=== PATIENT | female | born 1950 | race Caucasian/White ===

== ENCOUNTER 2022-06-27 12:57 | Emergency (ER) | payer MEDICARE, BC, SELFPAY ==
[2022-06-27] VITALS (21 sets, daily range): BP systolic 142–204; BP diastolic 84–116; PULSE 96–123; RESP 18; TEMP 36.7; O2SAT 94–98; BMI 23.8
--- NOTE | 2022-06-27 13:18 | CRLHL7_ITS ---
For Patients: As a result of the Century Cures Act, medical imaging exams and procedure reports are released immediately into your electronic medical record. You may view this report before your referring provider. If you have questions, please contact your health care provider. INDICATION: CHEST PAIN, HIGH BP TECHNIQUE: Chest 2 views. COMPARISON: August 16, 2020. FINDINGS: Cardiovascular and mediastinum: Heart size and vasculature are normal in caliber and appearance. Lungs and pleural spaces: Lungs are clear. No sign of infiltrate. No sign of pleural effusion. No pneumothorax. Suspect calcified granulomas at the bilateral lung bases and spleen. Bones and soft tissues: No significant findings. IMPRESSION: No acute or significant findings. Dictated by Albert Bose MD @ 06/27/2022 3:04:16 PM (Electronically Signed)
[2022-06-27] MEDS: IPRAT-ALBUT 0.5-2.5 MG/3 ML NEB 1 NEB IH (13:52)
[2022-06-27 13:55] LABS: Basophils Absolute Auto 0.02 K/uL (0.00-0.30); Basophils Percent Auto 0.3 % (0.0-3.0); Eosinophils Absolute Auto 0.03 K/uL (0.00-0.50); Eosinophils Percent Auto 0.4 % (0.0-7.0); Hematocrit 44.7 % (33.0-51.0); Hemoglobin* 14.7 gm/dL (12.0-16.0); Immature Granulocytes Abs Auto 0.01 K/uL (0.00-0.30); Immature Granulocytes Pct Auto 0.1 %; Lymphocytes Percent Auto 16.6 % (20-44); Mean Corpuscular HGB Conc 33 gm/dL (32-36); Mean Corpuscular Hemoglobin 33 pg (26-34); Mean Corpuscular Volume 101 fL (80-100); Neutrophils Percent Auto 74.6 % (42.0-72.0); Platelet Count* 290 K/uL (140-440); Red Blood Count 4.43 m/uL (4.00-5.20)
[2022-06-27 14:02] LABS: Chloride* 104 mmol/L (96-114); Potassium* 4.2 mmol/L (3.6-5.1); Sodium* 137 mmol/L (135-149)
[2022-06-27 14:03] LABS: Partial Thromboplastin Time* 27 Seconds (23-33)
[2022-06-27 14:05] LABS: Blood Urea Nitrogen* 16 mg/dL (7-30); Carbon Dioxide* 29 mmol/L (20-32); Creatinine* 0.7 mg/dL (0.5-1.5); Est. Creatinine Clearance* 38.37; Estimated Glomerular Filt Rate 92 ml/min
[2022-06-27 14:06] LABS: Calcium* 8.8 mg/dL (8.4-10.6); Glucose* 164 mg/dL (60-115)
[2022-06-27 14:14] LABS: Slide Review Reflex No
--- NOTE | 2022-06-27 14:17 | ED_ITS ---
HPI - Chest Pain General Date Seen: 06/27/22 Chief Complaint: Chest Pain Stated Complaint: Chest pain, high BP Time Seen by Provider: 06/27/22 13:09 Source: patient Mode of arrival: ambulatory Limitations: no limitations History of Present Illness HPI narrative: Patient is a 72-year-old female who presents ambulatory to the emergency room for chest pain that occurred while she was out with her friends eating at lunch. She describes pain underneath her left breast, took her breath away, and if she said she was not sitting she would have fallen over. No radiation to her back, shoulder, she does have a history of COPD she tells me but does not think this is a COPD exacerbation. Denies having any food caught in her throat during this occurrence or eating axillae when she was dot the pain. No past history of any cardiac issues, denies any leg swelling, history of DVT or pulmonary emboli. MD complaint: chest pain Pertinent past history: asthma Onset (ago): minute(s) Prior episodes: No Onset: during rest and other (Associated with eating) Pain location: substernal and left chest Pain radiation: none Severity: severe Quality: tightness and sharp Exacerbating factors: nothing Treatment prior to arrival: none Risk Factors Coronary artery disease risk factors: none Thoracic aortic dissection risk factors: none Related Data On Oral Contraceptives: No Home Medications Medication Instructions Recorded Confirmed atenolol 50 mg tablet 50 mg PO DAILY 06/27/22 06/27/22 Allergies Allergy/AdvReac Type Severity Reaction Status Date / Time adhesive Allergy Verified 06/27/22 13:04 aspirin Allergy Verified 06/27/22 13:04 ketorolac [From Toradol] Allergy Verified 06/27/22 13:04 psyllium Allergy Verified 06/27/22 13:05 Review of Systems Status of ROS Reports: 10 or more systems reviewed and unremarkable except as noted in History and below Exam Narrative Exam Narrative: Patient is speaking normally, no problem with slurring words, oriented x3. Head eyes ears nose and throat exam show equal pupils, no scleral icterus, extraocular muscles are normal, no facial droop, speech is normal, trachea normal and midline. Thyroid normal midline palpable not enlarged. Chest shows symmetrical rise bilaterally, normal auscultation with no wheezes, no increased work of breathing, no overt bruising or lesions seen, no tenderness is noted on auscultation. No chest pain noted on palpation. Heart sounds normal with no S3- S4 no murmurs clicks or gallops. Abdomen shows no obvious masses or hepatosplenomegaly, no organomegaly, bowel sounds are normal in all quadrants. No tenderness is noted also in all quadrants. Upper and lower extremities show normal power, normal range of motion, pulses are normal, sensations normal, fine motor movements are normal, pelvis is stable to rocking. Cervical spine shows normal range of motion, and palpably not tender. Thoracic spine shows normal range of motion, and palpably not tender, lumbar spine shows no tenderness to palpation percussion and is otherwise normal range of motion. Skin shows no rashes, petechiae or eccymosis. Const Vital Signs, click to edit/add: Vital Signs - 24 hr 06/27/22 13:02 06/27/22 14:09 06/27/22 14:12 Temperature 98.0 F Pulse Rate 108 H 111 H Pulse Rate [Right Pulse Oximeter] 123 H Respiratory Rate 18 Blood Pressure 142/116 H Blood Pressure [Right Upper Arm] 204/104 H Pulse Oximetry 96 95 97 Oxygen Delivery Method Room Air Documenting provider has reviewed patient's vital signs: yes Common normals: no apparent distress Course Course Hospital Course: Reviewed with the patient the CT scan did not show anything acute, no PE, troponins x2 showed delta 0.01, normal EKGs, her pain improved improved and basically went away while she was here. Because of her pain remains elusive but I suspect is more musculoskeletal, with the absence of any significant changes. Reassured by the other findings such as CT, I think at this point Tylenol at home rest follow-up with primary care and considering further workup, within the next few days return here if signs symptoms of worsening she was very comfortable with this. Vital Signs Vital signs: Initial Vital Signs Temperature 98.0 F 06/27/22 13:02 Temperature Source Temporal Artery Scan 06/27/22 13:02 Pulse Rate 123 H 06/27/22 13:02 Respiratory Rate 18 06/27/22 13:02 Blood Pressure 204/104 H 06/27/22 13:02 Blood Pressure Mean 137 06/27/22 13:02 Blood Pressure Position Sitting 06/27/22 13:02 Pulse Oximetry 96 06/27/22 13:02 Oxygen Delivery Method 06/27/22 13:02 Vital Signs Temperature 98.0 F 06/27/22 13:02 Pulse Rate 123 H 06/27/22 13:02 Respiratory Rate 18 06/27/22 13:02 Blood Pressure 204/104 H 06/27/22 13:02 Pulse Oximetry 96 06/27/22 13:02 Oxygen Delivery Method 06/27/22 13:02 Temperature 98.0 F 06/27/22 13:02 Pulse Rate 111 H 06/27/22 14:12 Respiratory Rate 18 06/27/22 13:02 Blood Pressure 142/116 H 06/27/22 14:12 Pulse Oximetry 97 06/27/22 14:12 Oxygen Delivery Method 06/27/22 13:02 MDM - Chest Pain MDM Narrative Medical decision making narrative: During the evaluation of this patient I considered multiple differential diagnosis is. The life-threatening differential diagnosis include coronary disease/[place], pulmonary embolism, pneumothorax, pneumonia, and aortic dissection. Other differential diagnosis included but were not limited to pericarditis, myocarditis, chest wall pain, GERD, esophageal rupture, rib fracture contusion, pleurisy, as well as other etiologies. Medical Records Data Attestation: I reviewed the patient's medical records. Lab Data Attestation: I reviewed the patient's lab results. Labs: Lab Results 06/27/22 06/27/22 06/27/22 Range/Units 13:24 13:30 13:30 WBC 7.90 (4.50-11.00) K/uL RBC 4.43 (4.00-5.20) m/uL Hgb 14.7 (12.0-16.0) gm/dL Hct 44.7 (33.0-51.0) % MCV 101 H (80-100) fL MCH 33 (26-34) pg MCHC 33 (32-36) gm/dL RDW Coeff of [place] 12.0 (11.5-15.5) % Plt Count 290 (140-440) K/uL Neut % (Auto) 74.6 H (42.0-72.0) % Lymph % (Auto) 16.6 L (20-44) % [place] % (Auto) 8.0 (0.0-11.0) % Eos % (Auto) 0.4 (0.0-7.0) % Baso % (Auto) 0.3 (0.0-3.0) % Neut # (Auto) 5.90 (1.7-7.0) K/uL Lymph # (Auto) 1.30 (0.90-2.90) K/uL [place] # (Auto) 0.60 (0.00-0.90) K/UL Eos # (Auto) 0.03 (0.00-0.50) K/uL Baso # (Auto) 0.02 (0.00-0.30) K/uL APTT (23-33) Seconds Sodium 137 (135-149) mmol/L Potassium 4.2 (3.6-5.1) mmol/L Chloride 104 (96-114) mmol/L Carbon Dioxide 29 (20-32) mmol/L BUN 16 (7-30) mg/dL Creatinine 0.7 (0.5-1.5) mg/dL Estimated Creat Clear 38.37 Estimated GFR 92 ml/min Glucose 164 H (60-115) mg/dL Calcium 8.8 (8.4-10.6) mg/dL NT-Pro-B Natriuret Pep pg/mL SARS-CoV-2 (PCR) (Negative) Influenza Type A (PCR) (Negative) Influenza Type B (PCR) (Negative) RSV (PCR) (Negative) POC Troponin I 0.00 L (0.01-0.04) ng/ml 06/27/22 06/27/22 06/27/22 Range/Units 13:30 13:30 13:30 WBC (4.50-11.00) K/uL RBC (4.00-5.20) m/uL Hgb (12.0-16.0) gm/dL Hct (33.0-51.0) % MCV (80-100) fL MCH (26-34) pg MCHC (32-36) gm/dL RDW Coeff of [place] (11.5-15.5) % Plt Count (140-440) K/uL Neut % (Auto) (42.0-72.0) % Lymph % (Auto) (20-44) % [place] % (Auto) (0.0-11.0) % Eos % (Auto) (0.0-7.0) % Baso % (Auto) (0.0-3.0) % Neut # (Auto) (1.7-7.0) K/uL Lymph # (Auto) (0.90-2.90) K/uL [place] # (Auto) (0.00-0.90) K/UL Eos # (Auto) (0.00-0.50) K/uL Baso # (Auto) (0.00-0.30) K/uL APTT 27 (23-33) Seconds Sodium (135-149) mmol/L Potassium (3.6-5.1) mmol/L Chloride (96-114) mmol/L Carbon Dioxide (20-32) mmol/L BUN (7-30) mg/dL Creatinine (0.5-1.5) mg/dL Estimated Creat Clear Estimated GFR ml/min Glucose (60-115) mg/dL Calcium (8.4-10.6) mg/dL NT-Pro-B Natriuret Pep 490 pg/mL SARS-CoV-2 (PCR) Negative SARS-CoV-2 (Negative) Influenza Type A (PCR) Negative PCR FLU A (Negative) Influenza Type B (PCR) Negative PCR FLU B (Negative) RSV (PCR) Negative PCR RSV (Negative) POC Troponin I (0.01-0.04) ng/ml 06/27/22 Range/Units 15:33 WBC (4.50-11.00) K/uL RBC (4.00-5.20) m/uL Hgb (12.0-16.0) gm/dL Hct (33.0-51.0) % MCV (80-100) fL MCH (26-34) pg MCHC (32-36) gm/dL RDW Coeff of [place] (11.5-15.5) % Plt Count (140-440) K/uL Neut % (Auto) (42.0-72.0) % Lymph % (Auto) (20-44) % [place] % (Auto) (0.0-11.0) % Eos % (Auto) (0.0-7.0) % Baso % (Auto) (0.0-3.0) % Neut # (Auto) (1.7-7.0) K/uL Lymph # (Auto) (0.90-2.90) K/uL [place] # (Auto) (0.00-0.90) K/UL Eos # (Auto) (0.00-0.50) K/uL Baso # (Auto) (0.00-0.30) K/uL APTT (23-33) Seconds Sodium (135-149) mmol/L Potassium (3.6-5.1) mmol/L Chloride (96-114) mmol/L Carbon Dioxide (20-32) mmol/L BUN (7-30) mg/dL Creatinine (0.5-1.5) mg/dL Estimated Creat Clear Estimated GFR ml/min Glucose (60-115) mg/dL Calcium (8.4-10.6) mg/dL NT-Pro-B Natriuret Pep pg/mL SARS-CoV-2 (PCR) (Negative) Influenza Type A (PCR) (Negative) Influenza Type B (PCR) (Negative) RSV (PCR) (Negative) POC Troponin I 0.01 (0.01-0.04) ng/ml Imaging Data CT scan - chest: Attestation: I have reviewed the pertinent imaging results. My impression: Do not see any abnormality on CT scan. Radiologist's impression: Patient: BRIDGET BAHENA Facility:?[facility] Patient ID:?[id number] Site Patient ID:?[id number]. Site :?[id number] Study:?CT Chest Angio PE PROTOCOL-06/27/2022 3:34:02 PM Ordering Physician:Caty Miller Final Report: INDICATION: Chest pain TECHNIQUE: CT chest PE was acquired with 95 cc Isovue 370 IV contrast. COMPARISON: None FINDINGS: Pulmonary Arteries: No CT evidence of pulmonary thromboembolic disease. No pul monary hypertension or right ventricular strain. Heart and Mediastinum: The visualized portions of the thyroid are normal. No axillary or supraclavicular lymphadenopathy. No mediastinal, hilar or ret rocrural lymphadenopathy. Normal heart size. Normal caliber aorta. Atherosclerotic calcifications of the aorta and its branches. Coronary artery calcifications. Mitral annular calcifications. Lungs and Airways: Upper lobe predominant centrilobular and paraseptal emphysema. Scattered indeterminate pulmonary nodules measuring up to 7 millimeters in the left lower lobe, axial image 140. Calcified granulomas. No mass or consolidation. No endoluminal lesion. Pleura: The pleural spaces are normal. Abdomen: Calcified hepatic and splenic granulomas. Small bilateral fat containing Bochdalek hernias. Simple attenuation segment 4 B cystic focus, statistically a simple cyst versus biliary hamartoma. Bones and soft tissues: The skeletal structures and soft tissues of the chest wall are unremarkable. IMPRESSION: 1. No CT evidence pulmonary thromboembolic disease. 2. No intrathoracic mass or consolidation. 3. Scattered indeterminate pulmonary nodules measuring up to 7 millimeters. Recommend unenhanced chest CT in approximately 6 months to document stability and to assess for underlying malignant potential. Please note that all CT scans at this facility use dose modulation, iterative reconstruction, and/or weight-based dosing when appropriate to reduce radiation dose to as low as reasonably achievable. Dictated by Ramsey Brunner MD @ 06/27/2022 4:36:53 PM (Electronic Signature) ECG Data Attestation: I personally reviewed and interpreted this ECG as follows: ECG interpretation date: 06/27/22 Interpretation: EKG shows sinus tachycardia with occasional PVCs no acute ST wave changes. Normal QRS QT and CA intervals assessment normal EKG with sinus tachycardia Follow-up EKG shows resolution of the sinus tachycardia, no acute ST wave changes. Assessment normal EKG Discharge Plan Discharge Clinical Impression: Chest pain Patient Disposition: Home, Self-Care Condition: Improved Instructions: Chest Pain (DC) Additional Instructions: home,rest and follow up with Primary care for recheck. Suggest tylenol, return if worsening such as vomiting, shortness of breath and abd pain Prescriptions: No Action atenolol 50 mg tablet 50 mg PO DAILY Follow Up/Referrals: Jacki Underwood DO [Primary Care Provider] - Stand Alone Forms: [employer] Info Instructions
[2022-06-27 14:19] LABS: PCR FLU A Negative PCR FLU A (Negative); PCR FLU B Negative PCR FLU B (Negative); PCR RSV Negative PCR RSV (Negative)
[2022-06-27 14:22] LABS: NT Pro B Type NatriureticPept* 490 pg/mL
[2022-06-27 14:36] LABS: SARS PCR* Negative SARS-CoV-2 (Negative)
--- NOTE | 2022-06-27 14:59 | CRLHL7_ITS ---
For Patients: As a result of the Century Cures Act, medical imaging exams and procedure reports are released immediately into your electronic medical record. You may view this report before your referring provider. If you have questions, please contact your health care provider. INDICATION: Chest pain TECHNIQUE: CT chest PE was acquired with 95 cc Isovue 370 IV contrast. COMPARISON: None FINDINGS: Pulmonary Arteries: No CT evidence of pulmonary thromboembolic disease. No pulmonary hypertension or right ventricular strain. Heart and Mediastinum: The visualized portions of the thyroid are normal. No axillary or supraclavicular lymphadenopathy. No mediastinal, hilar or retrocrural lymphadenopathy. Normal heart size. Normal caliber aorta. Atherosclerotic calcifications of the aorta and its branches. Coronary artery calcifications. Mitral annular calcifications. Lungs and Airways: Upper lobe predominant centrilobular and paraseptal emphysema. Scattered indeterminate pulmonary nodules measuring up to 7 millimeters in the left lower lobe, axial image 140. Calcified granulomas. No mass or consolidation. No endoluminal lesion. Pleura: The pleural spaces are normal. Abdomen: Calcified hepatic and splenic granulomas. Small bilateral fat containing Bochdalek hernias. Simple attenuation segment 4 B cystic focus, statistically a simple cyst versus biliary hamartoma. Bones and soft tissues: The skeletal structures and soft tissues of the chest wall are unremarkable. IMPRESSION: 1. No CT evidence pulmonary thromboembolic disease. 2. No intrathoracic mass or consolidation. 3. Scattered indeterminate pulmonary nodules measuring up to 7 millimeters. Recommend unenhanced chest CT in approximately 6 months to document stability and to assess for underlying malignant potential. Please note that all CT scans at this facility use dose modulation, iterative reconstruction, and/or weight-based dosing when appropriate to reduce radiation dose to as low as reasonably achievable. Dictated by Ramsey Brunner MD @ 06/27/2022 4:36:53 PM (Electronically Signed)
[2022-06-27] MEDS: 0.9 % SODIUM CHLORIDE 500 ML 500 ML IV (15:35)
[2022-06-27 16:18] LABS: Troponin, Point-of-Care* 0.01 ng/ml (0.01-0.04)
[2022-06-27 18:12] LABS: D Dimer Quantitative* < 0.27 ug/ml (0.00-0.50)
== END 2022-06-27 17:17 | disposition home or self-care (01) ==
PROVIDERS: Emergency Provider Family Medicine; PCP Family Medicine
DX: R07.9 Chest pain, unspecified (principal)
CPT/HCPCS: 36415; 71046; 71260; 80048; 83880; 84484; 85025; 85379; 85730; 87502; 87634; 87635; 93005; 94640; 99284; 99285; J7120; Q9967

== ENCOUNTER 2023-11-22 16:53 | Outpatient (CLI) | payer MEDICARE, BC, SELFPAY ==
--- OUTSIDE RECORDS SUMMARY | 2023-11-24 14:11 | XMS_ITS | Clinical Summary ---
Author Organization [facility] Address [place], [place] [address] Care Team Providers Care Psychological Aide Name Role Phone Jun Ramachandran MD Unavailable [phone] Mohan Chaves MD Unavailable Bella Kumar DO Primary Care Provider [phone] Allergies Active Allergy Reactions Criticality Noted Date Comments Adhesive Angioedema 11/24/2013 Aspirin Hives,Shortness Of Breath 02/19/2007 Severe Vwtvvmeb-Rmdvasrzcr-A olymyxin Rash,Edema,Erythema 02/19/2007 The eye drops only Psyllium Hives,Edema 02/19/2007 Ketorolac Hives 01/18/2016 Medications Medication Sig Dispensed Refills Start Date End Date Status CALTRATE 600+D PLUS MINERALS 600 MG (1,500 MG)-400 UNIT CHEWABLE TABIndications:Disord er of bone and cartilage, unspecified 1 tab twice daily 0 02/19/2007 Active cholecalciferol (VITAMIN D) 1,000 unit capsule Take 1 capsule by mouth once daily. 0 03/07/2011 Active ascorbic acid, vitamin C, (VITAMIN C) 500 mg tablet Take 1 tablet by mouth once daily. 0 01/03/2017 Active acetaminophen (TYLENOL) 325 mg tablet Take 650 mg by mouth. 08/25/2016 Active chondroitin sulf A sodium, PF, (KLARITY, CHONDROITIN,) 0.25 % drop Place into the eye(s). 0 03/07/2019 Active medical supply, miscellaneous (GRADUATED COMPRESSION STOCKINGS)Indications :Pedal edema,Varicose veins of both lower extremities with pain For personal use. Length: calf Strength: 8-12mmHg 1 Packet 2 06/21/2020 Active NebulizerIndications: Moderate persistent asthma without complication Nebulizer, disposable neb kit x 4, reuseable neb kit x 1, mask x 1, filters x 1. Frequency of use: daily; Medication: Albuterol Length of need: 99 months 1 Each 12/12/2021 Active Blood Pressure Monitor KitIndications:HTN (hypertension) Frequency of testing: daily prn 1 Each 11/20/2022 Active albuterol HFA (ProAir HFA) 90 mcg/actuation inhalerIndications:Mo derate persistent asthma without complication Inhale 1-2 Puffs by mouth every 6 hours if needed for Wheezing. 1 Each 3 12/21/2022 Active albuterol (PROVENTIL) 0.083 % neb solutionIndications:M oderate persistent asthma without complication Inhale 3 mL (2.5 mg) via a nebulizer every 4 hours if needed for Wheezing. 180 mL 02/07/2023 Active diltiazem LA (CARDIZEM LA) 240 mg extended release 24 hr tabletIndications:Sin us tachycardia Take 1 Tablet (240 mg) by mouth once daily. 90 Tablet 3 03/21/2023 Active umeclidinium-vilanter oL (Anoro Ellipta) 62.5-25 mcg/actuation inhalerIndications:Ch ronic obstructive pulmonary disease, unspecified COPD type (HC) Inhale 1 Puff by mouth once daily. Discard inhaler 6 weeks after opening or when the counter reads '0' (after all blisters have been used), whichever comes first. 60 Each 11 05/10/2023 Active albuterol-ipratropium (DUONEB) (2.5-0.5 mg) in 3 mL NEBULIZATION solutionIndications:C OPD mixed type (HC) USE 3 ML VIA NEBULIZER THREE TIMES DAILY 180 mL 1 06/08/2023 Active alendronate (FOSAMAX) 70 mg tabletIndications:Ost eopenia with high risk of fracture Take 1 Tablet (70 mg) by mouth once a week in the morning. Take on empty stomach with full glass of water. Do not lie down for 1 hr. 13 Tablet 2 07/03/2023 Active loratadine (Claritin) 10 mg tablet Take 10 mg by mouth once daily. Active furosemide (LASIX) 20 mg tabletIndications:Ped al edema,Tachycardia,HTN (hypertension) Take 1 Tablet (20 mg) by mouth once daily in the morning. 90 Tablet 08/29/2023 Active Active Problems Problem Noted Date Diagnosed Date Paroxysmal SVT (supraventricular tachycardia) TMJ (temporomandibular joint disorder) 3 Moderate persistent asthma without complication 10/31/2022 Anal fissure 09/28/2010 Personal history of colonic polyps 09/23/2010 Overview: Colonoscopy 09/2010 hyperplastic polyp repeat in 5 years Colonoscopy 01/2016 adenoma repeat in 5 years with propofol Colonoscopy 04/2021 normal, repeat in 7 years with propofol Other diseases of lung, not elsewhere classified 02/11/2010 Overview: Mild central lobular emphysema Multiple non calcified bilateral pulmonary nodules, left lower lob calcified granulomata Left hilar calcified lymph nodes Unspecified asthma(493.90) 02/19/2007 Personal history of tobacco use, presenting hazards to health 02/19/2007 Disorder of bone and cartilage, unspecified 09/2006 Encounters Date Type Department Care Team Description 11/05/2023 10:30 AM CDT Ancillary Procedure [facility] [address] [place] [address] 11/05/2023 9:40 AM CDT Orders Only [facility] [address] [facility] [address] [place] [address] Lab 11/05/2023 Travel 10/31/2023 10:30 AM CDT Orders Only [facility] [address] [facility] [place] [address] Lab, [facility] 10/31/2023 Travel 10/30/2023 Telephone [facility] [address] [place] [address] Bella Kumar DO Lab (Orders Needed) 10/30/2023 Orders Only [facility] [place] [address] [place] [id number] Jun Mantilla MD <No scans attached> 10/25/2023 3:00 PM CDT Office Visit [facility] - [address] [place] [address] [facility] 10/25/2023 2:30 PM CDT Office Visit [facility] - [place] [address] [place] [address] Jun Mantilla MD CV Valve New (VALVE NEW:, NO TESTING PRIOR) 10/25/2023 Travel 09/25/2023 Telephone [facility] - [place] [address] [place] [phone] Cardiology, Anw Cardiology Appointment 09/24/2023 10:00 AM CDT Office Visit [facility] - [place] [address] [place] [address] Ramsey Mobley MD CV General Cardiology New (Initial; Echo done 09/18 - Aortic Valve Stenosis) 09/24/2023 Travel 09/19/2023 11:00 AM CDT Ancillary Procedure [facility] at [facility] [address] [place] [address] 09/19/2023 Telephone [facility] [address] [place] [address] Bella Kumar DO Results (echo) 09/19/2023 Travel 09/14/2023 Telephone [facility] [address] [place] [address] Shalini Desouza MD Follow Up (Returning Call ) 09/14/2023 Telephone [facility] [address] [place] [address] Shalini Desouza MD Results 09/12/2023 11:05 AM CDT Office Visit [facility] [address] [place] [address] Shalini Desouza MD Hypertension Care Management; Follow Up (heart monitor) 09/12/2023 Travel 08/28/2023 Telephone [facility] [address] [facility] Bella Kumar DO Follow Up (BP, Pulse, and swelling) from Last 3 Months Immunizations Name Administration Dates Next Due COVID-19 vaccine (Moderna 100mcg/0.5mL) PF, MDV 06/09/2020,05/12/2020 COVID-19 vaccine (Pfizer-Bio NTech 30mcg/0.3mL) 12YO+ BIVALENT PF, MDV 10/27/2022 Hepatitis A (Adult) 02/19/2007,08/18/2006 Hepatitis B (Adult) 08/03/2002,02/28/2002,2001 Influenza A (H1N1), Inactivated 02/25/2009 Influenza RIV4 (Age 18+ Year s) PRESERV FREE 01/16/2020 Influenza, High-dose Inactivated 02/18/2019 Influenza, High-dose Quadriv alent Inactivated 02/06/2023,02/06/2022,02/07/2021 Influenza, IIV3 (Age 6-35 mos) 03/07/2011 Influenza, IIV3 (Age >=3 years) 03/19/20 12,03/07/2011,02/11/2010,02/19,01/26/2006,03/21/2003 Influenza, IIV4 (=>6mos) MDV 01/23/2017,03/09/20 15,02/24/2014 Pneumococcal Conj 20-valent (Prevnar 20) 09/03/2021 Pneumococcal Poly,23-Valent (Pneumovax) 06/07/2015,02/11/2010,05/23/2002 Pneumococcal conj 13-Valent (Prevnar 13) 01/25/2018 RSV, Recombinant ADJ Reconst ituted (Arexvy 120MCG/0.5mL) 03/05/2023 Td (Age >=7 Years) 03/05/2020,08/29/2002 Tdap 07/19/2009 Zoster (Shingrix-RZV, recombinant) 03/30/2020, Zoster (Zostavax-ZVL, live) 03/07/2011 Family History Medical History Relation Name Comments Diabetes Brother 1 Javed Heart Disease Brother 1 Javed aortice valve replacement at age 52 Leukemia Brother 1 Javed Alcohol/Drug Brother 2 alcohol Lymphoma Brother 3 Cancer Brother 4 prostate Myelodysplastic syndrome Brother 5 German ane tania Cancer Father pancreatic, met s to the gall bladder Heart Disease Maternal Aunt aortic valve replacement Thyroid cancer Mother Uterine cancer Mother Heart Disease Paternal Uncle two uncles h ad NE at ages33, 40 Alcohol/Drug Sister Annabelle alcohol Cancer-breast Sister Annabelle Polycythemia Sister Annabelle Cancer-ovarian No Family History Relation Name Status Comments Brother 1 Javed Brother 2 Brother 3 Brother 4 Brother 5 German Father Maternal Aunt Mother May, Other spouse, 1994, p ancreatic cancer Paternal Uncle Sister Annabelle Social History Tobacco Use Types Packs/Day Years Used Date Smoking Tobacco: Every Day Cigarettes 0.3 51.6 Started: 1972 Smokeless Tobacco: Never Tobacco Cessation:Ready to Q uit: Not Asked; Counseling Given: Not Answered Comments:Couple CIGARETTES PER DAY Alcohol Use Standard Drinks/Week Comments Yes 0 (1 standard drink = 0.6 oz pur e alcohol) ocassionally PHQ-2 Answer Date Recorded PHQ-2 TOTAL SCORE 0 10/27/2022 Social Connections Answer Date Recorded Frequency of Communication with Friends and Fami ly 0 11/20/2022 Financial Resource Strain Answer Date R ecorded Difficulty of Paying Living Expenses 3 11/20/2022 Difficulty of Paying Living Expenses Not on file 11/20/2022 Food Insecurity Answer Date Recorded Worried About Running Out of Food in the Last Ye ar 1 11/20/2022 Transportation Needs Answer Date Record ed Lack of Transportation (Medical) 1 11/20/2022 Housing Stability Answer Date Recorded Unable to Pay for Housing in the Last Year 1 11/20/2022 Sex and Gender Information Value Date Recorded Sex Assigned at Not on file Gender Identity Not on file Sexual Orientation Not on file Obstetrics History Para Term AB IAB SAB Ectopic Multiple Livin g Live Births 2 2 Date Outcome GA Total Labor Labor/2nd/3rd Weight Sex Type Anes PTL She A1 A5 Name Clin Last Filed Vital Signs Vital Sign Reading Time Taken Comments Blood Pressure 120/66 10/25/2023 2:17 PM CDT Pulse 106 10/25/2023 2:17 PM CDT Temperature 36.8 ??C (98.2 ??F) 02/07/2023 1 0:47 AM CDT Respiratory Rate 16 05/10/2023 1:11 PM [employer]EL[employer] Oxygen Saturation 96% 10/25/2023 2:17 PM CDT Inhaled Oxygen Concentration - - Weight 53.4 kg (117 lb 12.8 oz) 10/25/2023 2:17 PM CDT Height 153 cm (5' 0.25) 10/25/2023 2:17 PM CDT Body Mass Index 22.82 10/25/2023 2:17 PM CDT Plan of Treatment Health Maintenance Due Date Last Done Comments COVID-19 vaccine series ( season) 2023 04/18/2023, 10/27/2022, 03/21/2022, Additional history exists Depression screening for age 12+ 10/28/2023 10/27/2022, 10/26/2021, 06/21/2020, Additional history exists Medicare Wellness for age 65+ 10/28/2023, 10/26/2021, 06/21/2020, Additional history exists Influenza for age 65+ 12/16/2023 02/06/2023 , 02/06/2022, 02/07/2021, Additional history exists Mammogram for age 45-75 01/31/2024 01/31/20 23, 01/25/2022, 01/24/2021, Additional history exists BMI (ht and wt on same day) for age 18+ 10/24/2024 10/25/2023, 09/24/2023, 05/10/2023, Additional history exists Lipids for age 45-75 10/28/2027 10/27/2022, 10/26/2021, 06/21/2020, Additional history exists Colonoscopy through age 75 05/09/202805/09, 05/09/2021, 01/18/2016, Additional history exists Tetanus booster 03/05/2030 03/05/2020, 04/0 08/2009, 08/29/2002 Tdap Completed 07/19/2009 Hepatitis C screening for ag e 18-79 Completed 04/16/2013 (Completed outsid e of Erika) Zoster (shingles) series for age 50+ Completed 03/30/2020, 01/16/2020, 03/07/2011 DEXA/DXA scan for age 65+ Completed 2021, 03/10/2019, 04/30/2012 Pneumococcal series for age 65+ Completed 09/03/2021, 01/25/2018, 06/07/2015, Additional history exists Procedures Procedure Name Priority Date/Time Associated Diagnosis Comments CTA CHEST ABD PELVIS TAVR - DUAL READ Routine 11/05/2023 10:14 AM CDT Aortic valve stenosis, etiology of cardiac valve disease unspecified CREATININE,ISTAT Routine 11/05/2023 9:42 AM CDT Preprocedural examination HEMATOCRIT Routine 10/31/2023 10:17 AM CDT Preprocedural examination EKG 12 LEAD Routine 10/25/2023 1:24 PM CDT Aortic valve stenosis, etiology of cardiac valve disease unspecified ECHO TTE COMPLETE WO CONTRAST Routine 09/19/2023 11:20 AM CDT Pedal edema Tachycardia EXTENDED HOLTER Routine 09/14/2023 Pedal edema Tachycardia BASIC METABOLIC PANEL Routine 09/12/2023 11:39 AM CDT Pedal edema HTN (hypertension) Medication management XR MAMMO KAIA BILAT SCREEN Routine 01/30/2023 11:05 AM CDT Visit for screening mammogram LIPID PANEL W REFLEX MEASURED LDL Routine 10/27/2022 12:21 PM CDT Lipid screening XR DXA BONE DENSITY 2 SITES AXIAL Routine 05/23/2021 11:09 AM [employer] DEVELOPER Osteopenia with high risk of fracture Post-menopausal COLONOSCOPY SCREENING Routine 05/09/2021 12:00 AM [employer] DEVELOPER Personal history of colonic polyps from Last 3 Months or Most Recently Relevant to Health Maintenance Results * CTA CHEST ABD PELVIS TAVR - DUAL READ (11/05/2023 10:14 AM CDT) Anatomical Region Laterality Modality CHEST, Abdomen, Pelvis Computed Tomography Impressions 11/06/2023 10:32 AM CDT 1. No acute nonvascular findings in the chest, abdomen, and pelvis. 2. Please refer to separately dictated report for evaluation of cardiovascular structures. Please note that all CT scans at this facility use dose modulation, iterative reconstruction, and/or weight-based dosing when appropriate to reduce radiation dose to as low as reasonably achievable. Dictated by Cosmo Saez MD @ 11/06/2023 10:01:50 AM (Electronic Signature) Narrative 11/06/2023 10:32 AM CDT Images from the original result were not included. STUDY: CTA CHEST, ABDOMEN, AND PELVIS TAVR Study date: 11/05/2023 Indication: 73 year-old female with aortic valvular stenosis referred for evaluation of aortic valve annulus, thoracic aorta anatomy, and arterial access anatomy to determine candidacy for transcatheter aortic valve replacement (TAVR) procedure. STUDY PARAMETERS: Scanner: Siemens Definition Force Contrast: 100 ml of Omnipaque 350 Scan protocol: Helical with dose modulation for heart image acquisition. ?? High-pitch for chest, abdomen, and pelvis image acquisition. Radiation dose length product: 592.92 for heart and chest, abdomen, pelvis imaging. Image quality: Excellent FINDINGS: Aortic valve: Trileaflet. Aortic valve calcium score 1494. Annulus: Angles: Access: Other findings: Coronary arteries: Proximal LAD is heavily calcified and cannot exclude severe stenosis. Proximal LCx and proximal RCA are patent. Left atrium: Normal contrast opacification Left ventricle septal ECV: 29% Pericardium: Trivial effusion. Thoracic aorta: Mild atheromatous disease in the descending thoracic aorta. Abdominal aorta: Normal size and morphology. Abdominal aorta branch arteries: Celiac artery Patent. Superior mesenteric artery Patent. Right renal artery Patent. Left renal artery Patent. Inferior mesenteric artery Patent. Noncardiac findings: Please see separate radiology report. FINAL IMPRESSIONS: Trileaflet aortic valve with a calcium score of 1494. Aortic annulus has a perimeter of 75 mm and an annular area of 434 mm??. Best fitting TAVR device options include the #23 S3 (5.8% under) or the #26 S3 (19.6% over) or the #29 Evolut. Note average SOV diameter of 29 mm. Transfemoral access is feasible on either side, though with marginal minimal luminal diameters. Recommend invasive coronary angiogram prior to aortic valve intervention. FOR PATIENT: Results are automatically released to your [employer]) account once available, in compliance with federal regulations. ?? This means that you may see your results before your provider has had a chance to review them. ??Please allow 2-3 business days for your provider to comment on the results. Jose Raul Boyd MD [facility] 11/05/2023 ?? For Patients: As a result of the Century Cures Act, medical imaging exams and procedure reports are released immediately into your electronic medical record. ??You may view this report before your referring provider. ?? If you have questions, please contact your health care provider. OVER-READ ??OVER-READ ??OVER-READ OVER-READ: DETAILED RADIOLOGY EXTRACARDIAC OVER-READ OF CARDIAC CT 11/05/2023 TECHNIQUE: ??Please see cardiology report for technical information. ??100 cc Omnipaque-350 intravenous contrast. ?? This exam is being performed in conjunction with the services provided by the [facility] ([facility]). CLINICAL HISTORY: ??Aortic valve stenosis. Cardiac over-read. FINDINGS: ?? Chest: Subcentimeter thyroid nodules measuring up to 7 mm in the left lobe. No significant lymphadenopathy in the chest. Moderate emphysematous changes most pronounced at the lung apices. Stable appearing pleural-based scarring in the lateral right lung apex. Stable bilateral pulmonary nodules measuring up to 8 mm in the left lower lobe. Benign bilateral calcified granulomas. Abdomen/Pelvis: Liver: Stable left hepatic lobe cyst. Scattered benign-appearing calcified granulomas. Non cirrhotic morphology. Gallbladder: Unremarkable. Spleen: Benign calcified granulomas. Spleen otherwise unremarkable Adrenal glands: Unremarkable. Kidneys: Enhance symmetrically without hydronephrosis. Pancreas: Unremarkable. Lymph nodes: No retroperitoneal, mesenteric, inguinal, or pelvic adenopathy by CT criteria. Bowel: No bowel obstruction. Colonic diverticulosis. Urinary bladder: Limited evaluation due to underdistention. No gross pathology. Reproductive structures: Unremarkable for patient`s age. No abdominal/pelvis ascites or free intraperitoneal air. Musculoskeletal: Status post right hip arthroplasty. Visualized osseous structures demonstrate diffuse degenerative changes. Jun Mantilla MD CT * (ABNORMAL) CREATININE,ISTAT (11/05/2023 9:42 AM CDT) CREATININE, POCT 0.80 0.57 - 1.11 mg/dL 11/05/2023 9:44 AM CDT [facility] Comment:Caution: Patients ta izaiah Hydroxyurea have falsely increased iStat Creatinine results. Verify creatinine results ordering a Creatinine (99257.2) eGFR 78(L) >90 mL/min/1.7 3m2 11/05/2023 9:44 AM CDT [facility] Comment:As of 2021, eG FR is calculated by the CKD-EPI creatinine equation without race adjustment. eGFR can be influenced by muscle mass, exercise, and diet. The reported eGFR is an estimation only and is only applicable if the renal function is stable. Blood BLOOD SPECIMEN / Unknown 11/05/2023 9:42 AM CDT 11/05/2023 9:44 AM CDT Jun Mantilla MD CHEMISTRY Performing Organization Address City/[facility]/ZIP Co de Phone Number [facility] [address] * HEMATOCRIT (10/31/2023 10:17 AM CDT) Pathologist [facility] HEMATOCRIT 44.8 33.0 - 51.0 % 10/31/2023 10:59 AM CDT [facility] Blood BLOOD SPECIMEN / Unknown Venipuncture / Unknown 10/31/2023 10:17 AM CDT 10/31/2023 10:17 AM CDT Narrative [facility] - 10/31/2023 10:59 AM CDT This procedure was originally ordered at [facility]. Jun Mantilla MD HEMATOLOGY [facility] [address] [place] [address] * EKG 12 LEAD (10/25/2023 1:24 PM CDT) Interpretation Normal sinus rhythm Normal ECG No previous ECGs available Ventricular Rate 99 BPM Atrial Rate 99 BPM P-R Interval 150 ms QRS Duration 70 ms QT 362 ms QTc 464 ms P [place] 75 degrees R [place] 72 degrees T [place] 70 degrees 10/25/2023 1:24 PM CDT 10/25/2023 4:32 PM CDT Jun Mantilla MD EKG ORD * ECHO TTE COMPLETE WO CONTRAST (09/19/2023 11:20 AM CDT) AORTIC VALVE MEAN PG 53 mmHg LVEDD 2.7 cm EJECTION FRACTION > 75% Anatomical Region Laterality Modality Ultrasound 09/19/2023 10:5 1 AM CDT Narrative 09/19/2023 12:11 PM CDT ECHOCARDIOGRAM BRIDGET MAGANA ? Accession#: ?? [id number] : ?1950 73 years Study Date: ?? 09/19/2023 10:51:18 AM Gender: F ?BP: ? 122/86 mmHg Height: 152.00 cm ?BSA: ?1.48 m? ? ? Weight: 53.00 kg ? Tech: ? MJW ? Referring MD: BELLA KUMAR Site: ? [facility] Reading Location: Mobile-OP Patient Location: Outpatient. Procedure: 2D, Color Doppler and Spectral Doppler. Indication for study: Pedal edema Tachycardia Cardiac Rhythm: Regular.Study quality: Imaging limitations: This study was subject to imaging limitations due to a prominent lung artifact. Final Impressions: 1. Normal LV size, normal wall thickness, hyperdynamic global systolic function with an estimated EF of > 75%. 2. Right ventricular cavity size is normal, global systolic RV function is normal. 3. The aortic valve is calcified, severe stenosis and no regurgitation. The aortic valve peak velocity is 4.4 m/s, the peak gradient is 77 mmHg, and the mean gradient is 53 mmHg. The aortic valve area is 0.82 cm? ? ? with a dimensionless index of 0.22. The stroke volume index is 43.6 ml/m? ? ?. 4. The mitral valve is sclerotic, no mitral regurgitation. 5. Recommend cardiology evaluation. Chamber Sizes and Function Normal left ventricular size, normal wall thickness, hyperdynamic global systolic function with an estimated EF of > 75%. Left atrial size is normal. Right ventricular cavity size is normal, global systolic RV function is normal. RV wall thickness is normal. The right atrium is normal. Right atrial volume index is 5 ml/m? ? ?. Right atrial area is 5 cm? ? ?. The pulmonary artery is of normal size and origin. The sinus of Valsalva is normal sized. The ascending aorta is normal sized. Valves, RV Pressures and Diastolic Function The aortic valve is calcified, severe stenosis and no regurgitation. The mitral valve is sclerotic, no mitral regurgitation. Indeterminate pattern of LV diastolic filling. The tricuspid valve is normal in structure. Tricuspid regurgitation is regurgitation is not evident. Unable to assess right ventricular systolic pressure. The pulmonic valve is normal. No pulmonary regurgitation. Masses, Effusion, Shunts There is no pericardial effusion. The inferior vena cava is normal sized, respiratory size variation greater than 50%. No left to right shunting was detected by limited color flow Doppler interrogation of the interatrial septum. MEASUREMENTS AND CALCULATIONS 2-D Measurements and LV Function: LVID (d) 2.7 cm LV FS% (2D) ?? 37 % LVID (s) 1.7 cm LVOT diameter 2.2 cm IVS (d) ??0.9 cm HR ?118 bpm LVPW (d) 0.9 cm LA Vol index ??21 ml/m2 Ao Sinus 3.1 cm RA Vol index ??5 ml/m2 Asc Ao ?? 2.5 cm RA area ? 5 cm? ? ? LA ? 2.5 cm RV Max 4C (d) 2.9 cm Diastology: Mitral ?Tissue Doppler E Peak 0.9 m/s ??e', Septum ? 0.09 m/s A Peak 1.5 m/s ??e', Lateral ?0.10 m/s E/A ?0.6 ?E/e' Average ?? 9.47 DT ? 162 msec Aortic Valve: Vmax ? 4.4 m/s ??DIDIER (V) ?? 0.83 cm? ? ? VTI ?0.79 m ?? DIDIER (I) ?? 0.82 cm? ? ? LVOT V max ? 1.0 m/s ??Max PG ?77 mmHg LVOT VTI ? 0.17 m ?? Mean PG ?? 53 mmHg SV ? 65 ml ?Dim Index 0.22 SV index ? 44 ml/m? ? ? CO ?7.6 l/min AV Ejection Time 0.21 sec CI ?5.1 l/min/m? ? ? AV Flow Rate ? 307 ml/s Mitral Valve: MVA ?4.7 cm? ? ? MV P 1/2 47 msec Tricuspid Valve and estimated PA pressures: TAPSE 2.3 cm . This study was interpreted by an [facility] accredited facility. ??Final ?? Procedure Note Hamzah Pike MD - 09/19/2023 ECHOCARDIOGRAM BRIDGET MAGANA : 1950 73 years Study Date: 09/19/2023 10:51:18 AM Gender: F BP: 122/86 mmHg Height: 152.00 cm BSA: 1.48 m? ? ? Weight: 53.00 kg Tech: OMAR Referring MD: BELLA KUMAR Site: [facility] Reading Location: Mobile-OP Patient Location: Outpatient. Procedure: 2D, Color Doppler and Spectral Doppler. Indication for study: Pedal edema Tachycardia Cardiac Rhythm: Regular.Study quality: Imaging limitations: This study was subject to imaging limitations due toa prominent lung artifact. Final Impressions: 1. Normal LV size, normal wall thickness, hyperdynamic global systolicfunction with an estimated EF of > 75%. 2. Right ventricular cavity size is normal, global systolic RV functionis normal. 3. The aortic valve is calcified, severe stenosis and no regurgitation.The aortic valve peak velocity is 4.4 m/s, the peak gradient is 77 mmHg,and the mean gradient is 53 mmHg. The aortic valve area is 0.82 cm? ? ? witha dimensionless index of 0.22. The stroke volume index is 43.6 ml/m? ? ?. 4. The mitral valve is sclerotic, no mitral regurgitation. 5. Recommend cardiology evaluation. Chamber Sizes and Function Normal left ventricular size, normal wall thickness, hyperdynamic globalsystolic function with an estimated EF of > 75%. Left atrial size isnormal. Right ventricular cavity size is normal, global systolic RVfunction is normal. RV wall thickness is normal. The right atrium isnormal. Right atrial volume index is 5 ml/m? ? ?. Right atrial area is 5cm? ? ?. The pulmonary artery is of normal size and origin. The sinus ofValsalva is normal sized. The ascending aorta is normal sized. Valves, RV Pressures and Diastolic Function The aortic valve is calcified, severe stenosis and no regurgitation. Themitral valve is sclerotic, no mitral regurgitation. Indeterminate patternof LV diastolic filling. The tricuspid valve is normal in structure.Tricuspid regurgitation is regurgitation is not evident. Unable to assessright ventricular systolic pressure. The pulmonic valve is normal. Nopulmonary regurgitation. Masses, Effusion, Shunts There is no pericardial effusion. The inferior vena cava is normal sized,respiratory size variation greater than 50%. No left to right shunting wasdetected by limited color flow Doppler interrogation of the interatrialseptum. MEASUREMENTS AND CALCULATIONS 2-D Measurements and LV Function: LVID (d) 2.7 cm LV FS% (2D) 37 % LVID (s) 1.7 cm LVOT diameter 2.2 cm IVS (d) 0.9 cm HR 118 bpm LVPW (d) 0.9 cm LA Vol index 21 ml/m2 Ao Sinus 3.1 cm RA Vol index 5 ml/m2 Asc Ao 2.5 cm RA area 5 cm? ? ? LA 2.5 cm RV Max 4C (d) 2.9 cm Diastology: Mitral Tissue Doppler E Peak 0.9 m/s e', Septum 0.09 m/s A Peak 1.5 m/s e', Lateral 0.10 m/s E/A 0.6 E/e' Average 9.47 DT 162 msec Aortic Valve: Vmax 4.4 m/s DIDIER (V) 0.83 cm? ? ? VTI 0.79 m DIDIER (I) 0.82 cm? ? ? LVOT V max 1.0 m/s Max PG 77 mmHg LVOT VTI 0.17 m Mean PG 53 mmHg SV 65 ml Dim Index 0.22 SV index 44 ml/m? ? ? CO 7.6 l/min AV Ejection Time 0.21 sec CI 5.1 l/min/m? ? ? AV Flow Rate 307 ml/s Mitral Valve: MVA 4.7 cm? ? ? MV P 1/2 47 msec Tricuspid Valve and estimated PA pressures: TAPSE 2.3 cm . This study was interpreted by an [facility] accredited facility. Final Bella Kumar DO ECHO ORD * EXTENDED HOLTER (09/14/2023) Bella Kumar DO CARDIAC SERVICES OR D * (ABNORMAL) BASIC METABOLIC PANEL (09/12/2023 11:39 AM CDT) SODIUM 144 136 - 145 mmol/L 09/12/2023 10:39 PM CDT [facility] POTASSIUM 3.6 3.5 - 5.1 mmol/L 09/12/2023 10:39 PM CDT [facility] CHLORIDE 97(L) 98 - 107 mmol/L 09/12/2023 10:39 PM CDT [facility] CO2,TOTAL 30(H) 22 - 29 mmol/L 09/12/2023 10:39 PM CDT [facility] ANION GAP 17 5 - 18 09/12/2023 10:39 PM CDT [facility] GLUCOSE 96 70 - 99 mg/dL 09/12/2023 10:39 PM CDT [facility] CALCIUM 10.1 8.8 - 10.2 mg/dL 09/12/2023 10:39 PM CDT [facility] BUN 11 8 - 23 mg/dL 09/12/2023 10:39 PM CDT [facility] CREATININE 0.65 0.50 - 0.90 mg/dL 09/12/2023 10:39 PM T [facility] BUN/CREAT RATIO 17 10 - 20 10:39 PM CDT [facility] eGFR >90 >90 mL/min/1.7 3m2 09/12/2023 10:39 PM CDT [facility] Comment:As of 2021, eG FR is calculated by the CKD-EPI creatinine equation without race adjustment. ??eGFR can be influenced by muscle mass, exercise, and diet. ??The reported eGFR is an estimation only and is only applicable if the renal function is stable. Blood BLOOD SPECIMEN / Unknown Venipuncture / Unknown 09/12/2023 11:39 AM CDT 09/12/2023 11:40 AM CDT Shalini Desouza MD CHEMISTRY [facility] [address] [place] [address], * XR MAMMO KAIA BILAT SCREEN (01/30/2023 11:05 AM CDT) Anatomical Region Laterality Modality BREASTS, Breast Left, Breast Right Bilateral Mammography Impressions 01/30/2023 3:39 PM CDT ??There is no radiographic evidence for malignancy. ??Recommend annual mammograms. MAMMOGRAM ASSESSMENT: ??ACR 1 Negative PATIENTS: You will also receive a letter with your examination results in an easy to read format. ??If you have questions about your results, please contact your referring provider. Narrative 01/30/2023 3:39 PM CDT For Patients: As a result of the Century Cures Act, medical imaging exams and procedure reports are released immediately into your electronic medical record. You may view this report before your referring provider. If you have questions, please contact your health care provider. XR MAMMO KAIA BILAT SCREEN [[id number]] CLINICAL HISTORY: ??This is an asymptomatic 73 y.o. patient. INDICATION FOR EXAM: Mammogram Screening. TECHNIQUE: CC & MLO views were obtained. ??This study was evaluated with the assistance of Computer-Aided Detection. Breast Tomosynthesis was used in interpretation. COMPARISON FILM: Yes 01/25/22 [facility] 01/24/21 [facility] FINDINGS: ??The breasts are heterogeneously dense, which may obscure small masses. There are no dominant masses, suspicious micro calcifications or areas of architectural distortion. Bella Durham Detert DO MAMMO * (ABNORMAL) LIPID PANEL W REFLEX MEASURED LDL (10/27/2022 12:21 PM CDT) CHOLESTEROL,TOTAL 250(H) 100 - 199 mg/dL 10/28/2022 12:58 AM T [facility] Comment: Cholesterol, Total Reference Ranges Desirable <200 mg/dL Borderline 200-239 mg/dL High >=240 mg/dL TRIGLYCERIDES 141 <150 mg/dL 10/28/2022 12:58 AM CDT [facility] HDL CHOLESTEROL 87 >40 mg/dL 12:58 AM CDT [facility] NON-HDL CHOLESTEROL 163(H) <145 mg/dl 10/28/2022 12:58 AM CDT [facility] CHOL/HDL RATIO 2.87 <4.50 10/28/2022 12:58 AM CDT [facility] LDL CHOLESTEROL 135(H) <=130 mg/dL 10/28/2022 12:58 AM CDT [facility] VLDL CHOLESTEROL 28 <=30 mg/dL 10/28/2022 12:58 AM CDT [facility] PROVIDER ORDERED STATUS RANDOM 10/28/2022 12:58 AM CDT [facility] Blood BLOOD SPECIMEN / Unknown Venipuncture / Unknown 10/27/2022 12:21 PM CDT 10/27/2022 12:23 PM CDT Bella Kumar [facility] [address] [place] [address], * (ABNORMAL) XR DXA BONE DENSITY 2 SITES AXIAL (05/23/2021 11:09 AM [employer] DEVELOPER) Anatomical Region Laterality Modality Spine, HIPS, HIPL, HIPR Other Impressions 05/30/2021 8:21 AM [employer] DEVELOPER Osteopenia with elevated hip fracture risk. Given BMD stability, consider a drug holiday from bisphosphonates vs continue present medication if indicated. RECOMMENDATIONS: The National Osteoporosis Foundation recommends pharmacologic treatment for patients with T-scores of -2.5 or less, patients with prior history of fragility fractures, or patients with 10-year probability of greater than 3% at hips or greater than 20% of suffering major osteoporotic fractures. Recommend continued optimization of calcium and vitamin D intake through dietary means and/or supplementation and regular exercise. Repeat scan recommended in 3-5 years. Roz Suarez PA-C Narrative 05/30/2021 8:21 AM [employer] DEVELOPER For Patients: Results are automatically released to your [employer] account once available, in compliance with federal regulations. This means that you may see your results before your provider has had a chance to review them. Please allow 2-3 business days for your provider to comment on the results. XR DXA Bone Mineral Density (BMD) EXAM LOCATION: [address] [address] PATIENT NAME: Bridget Magana DATE OF : 1950 EXAM DATE: 05/23/2021 REQUESTING PROVIDER: Bella Kumar DO GENDER AT : female HEIGHT: 5' 0.63 (06/21/2020) WEIGHT: ??131 lb (04/29/2021) MENOPAUSAL STATUS: Postmenopausal RACE/ETHNICITY: White RISK FACTORS: Smoking (current) and Steroid Medication (non-topical) CURRENT MEDICATION FOR BONE LOSS: Alendronate (Fosamax) INDICATION: Post-Menopause COMPARISON DATE(S): 2018 DXA scans are compared to prior studies for a patient only when the two (or more) studies were performed on the same scanner. It is not possible to compare data generated on one scanner to data from another because there are not standards in DXA equipment. This applies even if the two scanners are made by the same engineering test specialist. PROCEDURE: Dual-energy x-ray absorptiometry performed with routine technique. Reporting is completed in the form of a T-score. The T-score represents the standard deviation from peak bone mass based on young healthy adult. A Z-score is used for diagnosis in premenopausal women, and for men under the age of 50. FINDINGS: RESULT LUMBAR SPINE L1 - L4 BMD: 0.924 g/cm2 T-Score: - 2.2 Z-Score: - 0.3 Change from prior in 2019: ??Increase 2.8%. RESULTS FEMUR Left femoral neck BMD: 0.733 g/cm2 T-Score: - 2.2 Z-Score: - 0.3 Change from prior in 2019: ??Decrease 0.3%. Left hip BMD: 0.828 g/cm2 T-Score: - 1.4 Z-Score: + 0.2 Change from prior in 2019: ??Increase 3.9%. WHO criteria: Normal: T-score at or above -1 SD Osteopenia: T-score between -1.1 and -2.4 SD Osteoporosis: T-score at or below -2.5 SD FRAX RISK CALCULATION (USED FOR OSTEOPENIA ONLY): 10-year probability of major osteoporotic fracture: 14.7%. 10-year probability of hip fracture: 5.2%. Bella Kumar DO DEXA * COLONOSCOPY SCREENING (05/09/2021 12:00 AM [employer] DEVELOPER) David Prince MD GI PROCEDURE ORD from Last 3 Months or Most Recently Relevant to Health Maintenance Advance Directives * Full Code (Latest Code Status on File) Date Activated Date Inactivated Comments 09/28/2010 2:20 PM 09/29/2010 12:14 AM Care Teams Psychological Aide Relationship Specialty Start Date End Date Bella Kumar DO [facility] [place] [address] PCP - General Family Practice 04/18/19 Jun Ramachandran MD [address] [place] [id number] Family Practice 01/03/17 Mohan Chaves MD [address] [place] [id number] Surgery - Orthopedics 01/03/17
== END 2023-11-22 16:54 | disposition home or self-care (01) ==
LOC: AMB 11-24 14:09
PROVIDERS: PCP Family Medicine; Visit Provider Family Medicine
DX: F10.129 Alcohol abuse with intoxication, unspecified (principal)
CPT/HCPCS: A0998

== ENCOUNTER 2024-01-18 19:42 | Outpatient (CLI) | payer MEDICARE, BC, SELFPAY ==
--- OUTSIDE RECORDS SUMMARY | 2024-01-21 23:45 | XMS_ITS | Clinical Summary ---
Author Organization [facility] Address [place], [place] [address] Care Team Providers Care Customer Counter Representative Name Role Phone Kostas Ramachandran MD Unavailable [phone] Mohan Chaves MD Unavailable Bella Kumar DO Primary Care Provider Allergies Active Allergy Reactions Criticality Noted Date Comments Adhesive Angioedema 11/24/2013 Aspirin Hives,Shortness Of Breath 02/19/2007 Severe Avmujoyw-Xpgvbmwslc-Q olymyxin Rash,Edema,Erythema 02/19/2007 The eye drops only Psyllium Hives,Edema 02/19/2007 Ketorolac Hives 01/18/2016 Medications Medication Sig Dispensed Refills Start Date End Date Status CALTRATE 600+D PLUS MINERALS 600 MG (1,500 MG)-400 UNIT CHEWABLE TABIndications:Dis order of bone and cartilage, unspecified Chew 1 Tablet by mouth once daily before a meal. 0 7 Active cholecalciferol (VITAMIN D) 1,000 unit capsule Take 1 capsule by mouth once daily. 0 1 Active ascorbic acid, vitamin C, (VITAMIN C) 500 mg tablet Take 1 tablet by mouth once daily. 0 7 Active acetaminophen (TYLENOL) 325 mg tablet Take 650 mg by mouth every 6 hours if needed. 7 Active chondroitin sulf A sodium, PF, (KLARITY, CHONDROITIN,) 0.25 % drop Place 1 Drop into the eye(s) two times daily. 0 9 Active loratadine (Claritin) 10 mg tablet Take 10 mg by mouth once daily. Active umeclidinium-vilan teroL (Anoro Ellipta) 62.5-25 mcg/actuation inhalerIndications :Chronic obstructive pulmonary disease, unspecified COPD type (HC) Inhale 1 Puff by mouth once daily. Discard inhaler 6 weeks after opening or when the counter reads '0' (after all blisters have been used), whichever comes first. 60 Each 11 4 Active alendronate (FOSAMAX) 70 mg tabletIndications: Osteopenia with high risk of fracture Take 1 Tablet (70 mg) by mouth once a week in the morning. Take on empty stomach with full glass of water. Do not lie down for 1 hr. 13 Tablet 3 4 Active albuterol HFA (ProAir HFA) 90 mcg/actuation inhalerIndications :Moderate persistent asthma without complication Inhale 1-2 Puffs by mouth every 6 hours if needed for Wheezing. 1 Each 3 4 Active furosemide (LASIX) 20 mg tabletIndications: Pedal edema,Tachycardia, HTN (hypertension) Take 1 Tablet (20 mg) by mouth once daily in the morning. ON HOLD 4 Active albuterol-ipratrop ium (DUONEB) (2.5-0.5 mg) in 3 mL NEBULIZATION solution Inhale 1 Neb via a nebulizer 4 times daily if needed. Active clopidogreL (PLAVIX) 75 mg tabletIndications: Nonrheumatic aortic valve stenosis Take 1 Tablet (75 mg) by mouth once daily in the morning. 90 Tablet 2 4 01/11/20 25 Active diltiazem 24 hour (CARDIZEM LA) 360 mg extended release 24 hr tabletIndications: Sinus tachycardia Take 1 Tablet (360 mg) by mouth once daily. 5 Tablet 4 Active oxyCODONE (ROXICODONE) 5 mg immediate release tabletIndications: Closed fracture of second lumbar vertebra, unspecified fracture morphology, initial encounter (HC),Acute back pain, unspecified back location, unspecified back pain laterality Take 1 Tablet (5 mg) by mouth every 4 hours if needed for Pain (For moderate to severe pain.). 10 Tablet 4 Active medical supply, miscellaneous (GRADUATED COMPRESSION STOCKINGS)Indicati ons:Pedal edema,Varicose veins of both lower extremities with pain For personal use. Length: calf Strength: 8-12mmHg 1 Packet 2 1 01/16/20 24 Discontinued(Pha rmacist change per medication history (E-cancel not sent)) NebulizerIndicatio ns:Moderate persistent asthma without complication Nebulizer, disposable neb kit x 4, reuseable neb kit x 1, mask x 1, filters x 1. Frequency of use: daily; Medication: Albuterol Length of need: 99 months 1 Each 2 01/16/20 24 Discontinued(Pha rmacist change per medication history (E-cancel not sent)) Blood Pressure Monitor KitIndications:HTN (hypertension) Frequency of testing: daily prn 1 Each 3 01/16/20 24 Discontinued(Pha rmacist change per medication history (E-cancel not sent)) albuterol HFA (ProAir HFA) 90 mcg/actuation inhalerIndications :Moderate persistent asthma without complication Inhale 1-2 Puffs by mouth every 6 hours if needed for Wheezing. 1 Each 3 3 12/28/19 24 Discontinued(Reo rder (E-cancel not sent)) albuterol (PROVENTIL) 0.083 % neb solutionIndication s:Moderate persistent asthma without complication Inhale 3 mL (2.5 mg) via a nebulizer every 4 hours if needed for Wheezing. 180 mL 3 12/28/19 24 Discontinued(*Me d complete/Regimen complete/Level of care change) diltiazem LA (CARDIZEM LA) 240 mg extended release 24 hr tabletIndications: Sinus tachycardia Take 1 Tablet (240 mg) by mouth once daily. 90 Tablet 3 3 01/20/20 24 Discontinued umeclidinium-vilan teroL (Anoro Ellipta) 62.5-25 mcg/actuation inhalerIndications :Chronic obstructive pulmonary disease, unspecified COPD type (HC) Inhale 1 Puff by mouth once daily. Discard inhaler 6 weeks after opening or when the counter reads '0' (after all blisters have been used), whichever comes first. 60 Each 11 4 12/28/19 24 Discontinued(Reo rder (E-cancel not sent)) albuterol-ipratrop ium (DUONEB) (2.5-0.5 mg) in 3 mL NEBULIZATION solutionIndication s:COPD mixed type (HC) USE 3 ML VIA NEBULIZER THREE TIMES DAILY 180 mL 1 4 01/16/20 24 Discontinued(Pha rmacist change per medication history (E-cancel not sent)) alendronate (FOSAMAX) 70 mg tabletIndications: Osteopenia with high risk of fracture Take 1 Tablet (70 mg) by mouth once a week in the morning. Take on empty stomach with full glass of water. Do not lie down for 1 hr. 13 Tablet 2 4 12/28/19 24 Discontinued(Reo rder (E-cancel not sent)) furosemide (LASIX) 20 mg tabletIndications: Pedal edema,Tachycardia, HTN (hypertension) Take 1 Tablet (20 mg) by mouth once daily in the morning. 90 Tablet 4 12/28/19 24 Discontinued(Reo rder (E-cancel not sent)) furosemide (LASIX) 20 mg tabletIndications: Pedal edema,Tachycardia, HTN (hypertension) Take 1 Tablet (20 mg) by mouth once daily in the morning. 90 Tablet 4 12/28/19 24 Discontinued(Oth er - add note to specify (E-cancel not sent)) diltiazem LA (CARDIZEM LA) 240 mg extended release 24 hr tabletIndications: Sinus tachycardia Take 2 Tablets (480 mg) by mouth once daily. Increased dose to 360 mg daily from 240 mg. 4 01/20/20 24 Discontinued Active Problems Problem Noted Date Diagnosed Date Status post transcatheter ao rtic valve replacement (TAVR) using bioprosthesis 01/19/2024 Alcoholic intoxication with complication 024 Closed compression fracture of L2 lumbar vertebra, initial encounter 01/19/2024 Centrilobular emphysema 01/19/2024 Paroxysmal SVT (supraventricular tachycardia) TMJ (temporomandibular joint disorder) 3 Moderate persistent asthma without complication 10/31/2022 Anal fissure 09/28/2010 Personal history of colonic polyps 09/23/2010 Overview (05/10/2021): Colonoscopy 09/2010 hyperplastic polyp repeat in 5 years Colonoscopy 01/2016 adenoma repeat in 5 years with propofol Colonoscopy 04/2021 normal, repeat in 7 years with propofol Other diseases of lung, not elsewhere classified 02/11/2010 Overview (02/11/2010): Mild central lobular emphysema Multiple non calcified bilateral pulmonary nodules, left lower lob calcified granulomata Left hilar calcified lymph nodes Unspecified asthma(493.90) 02/19/2007 Personal history of tobacco use, presenting hazards to health 02/19/2007 Disorder of bone and cartilage, unspecified 09/2006 Encounters Date Type Department Care Team Description 01/21/2024 10:30 AM CDT Office Visit [facility] [address] [place] [address] Cheryl Eng PA Hospital F/U (Got out of hospital on 01/16-needs to have repeat echo, CT and labs in a month) 01/21/2024 Orders Only [facility] [address] [place] [address] Cheryl Eng PA 1 scan: (1-Ord) NFLD-EKG-10.7.24 01/21/2024 Travel 01/21/2024 Patient Outreach [facility] [address] [place] [address] Bere Dawson, RN Primary RN Care Management; Hospital F/U (LACE 74) 01/19/2024 Travel 01/18/2024 8:43 PM CDT - 01/20/2024 4:25 PM CDT Emergency [facility] [address] [place] [address] Jose Raul Edwards MD [facility], [facility], MD Star Whaley Renzhong, MD Rone, Andrez Andrews, ATIYA Closed fracture of second lumbar vertebra, unspecified fracture morphology, initial encounter (HC) (Primary Dx); Alcoholic intoxication with complication (HC); S/P TAVR (transcatheter aortic valve replacement); Sinus tachycardia; Acute back pain, unspecified back location, unspecified back pain laterality Discharge Disposition: Home Self Care 01/18/2024 Patient Outreach [facility] [address] [place] [address] Bella Segura, RN Primary RN Care Management; Hospital F/U (DC date 01/17/24) 01/16/2024 5:44 AM CDT - 01/17/2024 12:30 PM CDT Hospital Encounter [facility] [address] [place] [address] Kostas Jimenez MD Nonrheumatic aortic valve stenosis (Primary Dx) Discharge Disposition: Home Self Care 01/16/2024 Travel 01/11/2024 Orders Only [facility] [address] [address] Isauro Tovar NP <No scans attached> 01/09/2024 11:30 AM CDT Office Visit [facility] [address] [phone] Isauro Tovar NP CV Valve Est (PRE-OP TAVR, LABS PRIOR,NEEDS EKG,KCCQ12, 5M WALK,LETTER SENT, HJK//PCP: Bella Kumar, DO/) 01/09/2024 11:00 AM CDT Orders Only [facility] [address] [facility] [address] [place] [phone] Lab 01/09/2024 Travel 01/04/2024 5:43 AM CDT - 01/04/2024 11:26 AM CDT Hospital Encounter [facility] [address] [place] [address] Kostas Jimenez MD Cardiovascular symptoms Discharge Disposition: Home Self Care 01/04/2024 Travel 12/28/2023 3:04 PM CDT - 12/28/2023 11:59 PM CDT Hospital Encounter [facility] [address] [place] [address] Nick Sanders MD Aortic valve stenosis, etiology of cardiac valve disease unspecified 12/28/2023 2:30 PM CDT Office Visit [facility] [address] [place] [address] Nick Sanders MD CV General Cardiology Est (H&P ANGIO//PCP: Bella Kumar DO/) 12/28/2023 10:15 AM CDT Office Visit [facility] [address] [place] [address] Bella Kumar DO Medicare ANNUAL (subsequent) Visit (73 yr); Edema 12/28/2023 Travel 12/21/2023 Telephone [facility] [address] [place] [address] Rica Hall RN Pre Procedure 12/18/2023 10:30 AM CDT Ancillary Procedure [facility] [address] [place] [address] 12/18/2023 Travel 12/14/2023 Telephone [facility] [address] [place] [phone] Kostas Jimenez MD 12/14/2023 Telephone [facility] [address] [phone] Kostas Jimenez MD SAVR vs TAVR decision 12/05/2023 Telephone [facility] [address] [place] [address] Bella Kumar DO Questions (Concerns ) 11/26/2023 Telephone [facility] [address] [place] [phone] Kostas Jimenez MD Results (CTA) 11/05/2023 10:30 AM CDT Ancillary Procedure [facility] [address] [place] [address] 11/05/2023 9:40 AM CDT Orders Only [facility] [address] [place] [address] Lab 11/05/2023 Travel 10/31/2023 10:30 AM CDT Orders Only [facility] [address] [place] [phone] Lab, [place] Lab 10/31/2023 Travel 10/30/2023 Telephone [facility] [address] [place] [address] Bella Kumar DO Lab (Orders Needed) 10/30/2023 Orders Only [facility] [address] [place] [phone] Kostas Jimenez MD <No scans attached> 10/25/2023 3:00 PM CDT Office Visit [address] [place] [address] John Sommer [facility] Heart Problem 10/25/2023 2:30 PM CDT Office Visit [address] [place] [address] Kostas Jimenez MD CV Valve New (VALVE NEW:, NO TESTING PRIOR) 10/25/2023 Travel from Last 3 Months Immunizations Name Administration [...] Disease Paternal Uncle two uncles h ad PA at ages33, 40 Alcohol/Drug Sister Annabelle alcohol Cancer-breast Sister Annabelle Polycythemia Sister Annabelle Cancer-ovarian No Family History Relation Name Status Comments Brother 1 Javed Brother 2 Brother 3 Brother 4 Brother 5 German Father Maternal Aunt Mother May, Other spouse, 1994, p ancreatic cancer Paternal Uncle Sister Annabelle Social History Tobacco Use Types Packs/Day Years Used Date Smoking Tobacco: Every Day Cigarettes 0.3 51.8 Started: 1972 Smokeless Tobacco: Never Tobacco Cessation:Ready to Q uit: Not Asked; Counseling Given: Not Answered Comments:Couple CIGARETTES PER DAY Alcohol Use Standard Drinks/Week Comments Yes 0 (1 standard drink = 0.6 oz pur e alcohol) ocassionally PHQ-2 Answer Date Recorded PHQ-2 TOTAL SCORE 0 12/28/2023 Social Connections Answer Date Recorded Frequency of Communication with Friends and Fami ly 0 12/28/2023 Financial Resource Strain Answer Date R ecorded Difficulty of Paying Living Expenses 3 12/28/2023 Difficulty of Paying Living Expenses Not on file 12/28/2023 Food Insecurity Answer Date Recorded Worried About Running Out of Food in the Last Ye ar 1 12/28/2023 Transportation Needs Answer Date Record ed Lack of Transportation (Medical) 1 12/28/2023 Housing Stability Answer Date Recorded Unable to Pay for Housing in the Last Year 1 12/28/2023 Sex and Gender Information Value Date Recorded [...] Sign Reading Time Taken Comments Blood Pressure 135/78 01/21/2024 10:25 AM CDT Pulse 128 01/21/2024 10:25 AM CDT Temperature 37 ??C (98.6 ??F) 01/20/2024 7:19 AM CDT Respiratory Rate 18 01/20/2024 12:00 AM CDT Oxygen Saturation 93% 01/21/2024 10:25 AM CDT Inhaled Oxygen Concentration - - Weight 52.6 kg (116 lb) 01/21/2024 10:25 AM CDT Height 153 cm (5' 0.25) 01/18/2024 8:54 PM CDT Body Mass Index 22.47 01/18/2024 8:54 PM CDT Plan of Treatment Upcoming Encounters Date Type Department Care Team (Late st Contact Info) Description 01/30/2024 11:05 AM CDT Office Visit [facility] [address] [place] [address] Bella Kumar DO [address] [place] [address] 02/11/2024 11:00 AM CDT Ancillary Procedure [facility] [address] [place] [phone] 02/18/2024 11:20 AM RETAIL TEAM LEADER Ancillary Procedure [facility] [address] [place] [address] 02/22/2024 9:20 AM RETAIL TEAM LEADER Orders Only [facility] [address] [place] [address] 02/22/2024 9:30 AM RETAIL TEAM LEADER Appointment [facility] [address] [place] [address] 02/22/2024 11:00 AM RETAIL TEAM LEADER Office Visit [facility] [address] [place] [address] Nick Sanders MD [address] [facility] [address] [place] [address] Health Maintenance Due Date Last Done Comments Influenza for age 65+ 12/16/2023 02/06/2023 , 02/06/2022, 02/07/2021, Additional history exists Mammogram for age 45-75 01/31/2024 01/31/20 23, 01/25/2022, 01/24/2021, Additional history exists Depression screening for age 12+ 12/27/2024 12/28/2023, 12/28/2023, 10/27/2022, Additional history exists Medicare Wellness for age 65+ 12/28/2024, 10/27/2022, 10/26/2021, Additional history exists BMI (ht and wt on same day) for age 18+ 01/08/2025 01/09/2024, 12/28/2023, 12/28/2023, Additional history exists Colonoscopy through age 75 05/09/202805/09, 05/09/2021, 01/18/2016, Additional history exists Lipids for age 45-75 01/08/2029 01/09/2024, 12/28/2023, 10/27/2022, Additional history exists Tetanus booster 03/05/2030 03/05/2020, 04/0 08/2009, 08/29/2002 Tdap Completed 07/19/2009 Hepatitis C screening for ag e 18-79 Completed 04/16/2013 (Completed outsid e of Erika) Zoster (shingles) series for age 50+ Completed 03/30/2020, 01/16/2020, 03/07/2011 DEXA/DXA scan for age 65+ Completed 2021, 03/10/2019, 04/30/2012 Pneumococcal series for age 65+ Completed 09/03/2021, 01/25/2018, 06/07/2015, Additional history exists COVID-19 vaccine series Completed 12/22/19 24, 04/18/2023, 10/27/2022, Additional history exists Procedures Procedure Name Priority Date/Time Associated Diagnosis Comments VT READING EKG - NO CHARGE, COMP ONLY Routine 01/21/2024 2:51 PM CDT SVT (supraventricular tachycardia) (HC) SCAN-CARDIAC STRIP 01/20/2024 2: 36 AM CDT SCAN-CARDIAC STRIP 01/19/2024 4: [address] SPINE LUMBAR WO STAT 01/18/2024 10 :[address] SPINE CERVICAL WO STAT 01/18/2024 10:[address] HEAD BRAIN WO STAT 01/18/2024 10:1 6 PM CDT MAGNESIUM STAT 01/18/2024 9:44 PM CDT ETHANOL SERUM OR PLASMA STAT 01/18/2024 9:44 PM CDT EKG 12 LEAD STAT 01/18/2024 9:18 PM CDT BASIC METABOLIC PANEL STAT 01/18/2024 9:11 PM CDT CBC W PLT NO DIFF STAT 01/18/2024 9:1 1 PM CDT SCAN-CARDIAC STRIP 01/17/2024 8: 25 AM CDT MAGNESIUM Early AM 01/17/2024 6:59 AM CDT PROTIME-INR Early AM 01/17/2024 6:59 AM CDT BASIC METABOLIC PANEL Early AM 01/17/2024 6:59 AM CDT CBC W PLT NO DIFF Early AM 01/17/2024 6:5 9 AM CDT EKG 12 LEAD Early AM 01/17/2024 5:26 AM CDT SCAN-CARDIAC STRIP 01/17/2024 3: 12 AM CDT SCAN-CARDIAC STRIP 01/16/2024 7: 31 PM CDT SCAN-CARDIAC STRIP 01/16/2024 5: 06 PM CDT PROTIME-INR Today 01/16/2024 11:41 AM CDT ECHO TTE LIMITED W CONTRAST W COLOR W DOPPLER Routine 01/16/2024 11:21 AM CDT CVL OTHER PROCEDURE 01/16/2024 9 :38 AM CDT EKG 12 LEAD DANIELLE 01/16/2024 9:31 AM CDT HCHG ACTIVATED CLOTTING TM CV Timed 01/16/2024 8:38 AM CDT CVL TAVR Routine 01/16/2024 8:21 AM CDT RBC W/O TYPE & SCREEN STAT 01/16/2024 7:29 AM CDT RED BLOOD CELLS EA UNIT STAT 01/16/2024 7:29 AM CDT RED BLOOD CELLS EA UNIT STAT 01/16/2024 7:29 AM CDT TYPE & SCREEN Preop 01/16/2024 6:31 AM CDT CREATININE DANIELLE 01/16/2024 6:31 AM CDT MAGNESIUM DANIELLE 01/16/2024 6:31 AM CDT POTASSIUM DANIELLE 01/16/2024 6:31 AM CDT GLUCOSE, FASTING Preop 01/16/2024 6:31 AM CDT EKG 12 LEAD Routine 01/09/2024 10:24 AM CDT Aortic valve stenosis, etiology of cardiac valve disease unspecified FRUIT CANNER QUESTION TEST Routine 01/09/2024 9:57 AM CDT Preop testing TYPE & SCREEN Routine 01/09/2024 9:57 AM CDT Preop testing LIPID PANEL W REFLEX MEASURED LDL Routine 01/09/2024 9:57 AM CDT Lipid screening CBC W PLT NO DIFF Routine 01/09/2024 9:5 7 AM CDT Preop testing BASIC METABOLIC PANEL Routine 01/09/2024 9:57 AM CDT Preop testing ALBUMIN Routine 01/09/2024 9:57 AM CDT Preop testing CVL CORONARY ANGIOGRAM POSS PCI Routine 01/04/2024 8:21 AM CDT Cardiovascular symptoms BASIC METABOLIC PANEL STAT 01/04/2024 6:20 AM CDT CBC W PLT NO DIFF Preop 01/04/2024 6:2 0 AM CDT EKG 12 LEAD Routine 01/04/2024 6:10 AM CDT LIPID PANEL Today 12/28/2023 3:08 PM CDT Aortic valve stenosis, etiology of cardiac valve disease unspecified CBC W PLT NO DIFF Today 12/28/2023 3:0 8 PM CDT Aortic valve stenosis, etiology of cardiac valve disease unspecified BASIC METABOLIC PANEL Today 12/28/2023 3:08 PM CDT Aortic valve stenosis, etiology of cardiac valve disease unspecified CT CHEST SCREENING LOW DOSE WO CONTRAST Routine 12/18/2023 10:52 AM CDT Cigarette smoker Encounter for screening for lung cancer CTA CHEST ABD PELVIS TAVR - DUAL READ Routine 11/05/2023 10:14 AM CDT Aortic valve stenosis, etiology of cardiac valve disease unspecified CREATININE,ISTAT Routine 11/05/2023 9:42 AM CDT Preprocedural examination HEMATOCRIT Routine 10/31/2023 10:17 AM CDT Preprocedural examination EKG 12 LEAD Routine 10/25/2023 1:24 PM CDT Aortic valve stenosis, etiology of cardiac valve disease unspecified XR MAMMO KAIA BILAT SCREEN Routine 01/30/2023 11:05 AM CDT Visit for screening mammogram XR DXA BONE DENSITY 2 SITES AXIAL Routine 05/23/2021 11:09 AM RETAIL TEAM LEADER Osteopenia with high risk of fracture Post-menopausal COLONOSCOPY SCREENING Routine 05/09/2021 12:00 AM RETAIL TEAM LEADER Personal history of colonic polyps from Last 3 Months or Most Recently Relevant to Health Maintenance Results * VT READING EKG - NO CHARGE, COMP ONLY (01/21/2024 2:51 PM CDT) Cheryl MORENO PB - PROVIDER READ INGS * SCAN-CARDIAC STRIP (01/20/2024 2:36 AM CDT) Scanner OTHER * SCAN-CARDIAC STRIP (01/19/2024 4:51 AM CDT) Scanner OTHER * CT SPINE LUMBAR WO (01/18/2024 10:18 PM CDT) Anatomical Region Laterality Modality LUMBAR SPINE, Spine, Spine Compu warren Tomography 01/18/2024 10:5 8 PM CDT Narrative 01/18/2024 10:58 PM CDT For Patients: ??As a result of the Cures Act, medical imaging exams and procedure reports are released immediately into your electronic medical record. ??You may view this report before your referring provider. ??If you have questions, please contact your health care provider. Indication: Low back pain, fall Technique: Noncontrast CT through the lumbar spine with multiplanar reformats Comparison: CTA chest abdomen pelvis performed 11/05/2023 Findings: Alignment: No significant malalignment appreciated. Bones: There is an acute mild L2 compression fracture with minimal retropulsion. Chronic L4 compression fracture. Lumbar levels: Mild degenerative changes. Soft tissues: No acute abnormality appreciated. Impression: Mild acute L2 compression fracture with minimal retropulsion. No other acute abnormality appreciated. Please note that all CT scans at this facility use dose modulation, iterative reconstruction, and/or weight-based dosing when appropriate to reduce radiation dose to as low as reasonably achievable. Dictated by Jens Collins MD @ 01/18/2024 10:58:10 PM (Electronically Signed) Procedure Note Jens Collins MD - 01/18/2024 For Patients: As a result of the Cures Act, medical imagingexams and procedure reports are released immediately into your electronicmedical record. You may view this report before your referring provider.If you have questions, please contact your health care provider. Indication: Low back pain, fall Technique: Noncontrast CT through the lumbar spine with multiplanar reformats Comparison: CTA chest abdomen pelvis performed 11/05/2023 Findings: Alignment: No significant malalignment appreciated. Bones: There is an acute mild L2 compression fracture with minimalretropulsion. Chronic L4 compression fracture. Lumbar levels: Mild degenerative changes. Soft tissues: No acute abnormality appreciated. Impression: Mild acute L2 compression fracture with minimal retropulsion. No otheracute abnormality appreciated. Please note that all CT scans at this facility use dose modulation,iterative reconstruction, and/or weight-based dosing when appropriate toreduce radiation dose to as low as reasonably achievable. Dictated by Jens Collins MD @ 01/18/2024 10:58:10 PM (Electronically Signed) Jose Raul Edwards MD CT * CT SPINE CERVICAL WO (01/18/2024 10:17 PM CDT) Anatomical Region Laterality Modality CERVICAL SPINE, NECK, Spine Comp uted Tomography 01/18/2024 10:5 6 PM CDT Narrative 01/18/2024 10:56 PM CDT For Patients: ??As a result of the Cures Act, medical imaging exams and procedure reports are released immediately into your electronic medical record. ??You may view this report before your referring provider. ??If you have questions, please contact your health care provider. Indication: Fall Technique: Noncontrast CT through the cervical spine with multiplanar reformats Comparison: None Findings: Alignment: Nonspecific reversal of the normal lordotic curvature. Mild C3-4 anterolisthesis. Mild C6-7 retrolisthesis. Mild C7-T1 anterolisthesis. Bones: No acute fracture. No lytic or blastic lesion. Cervical levels: No acute abnormality appreciated. [id number] multilevel degenerative changes. Soft tissues: No acute abnormality appreciated. Impression: No acute abnormality appreciated. Please note that all CT scans at this facility use dose modulation, iterative reconstruction, and/or weight-based dosing when appropriate to reduce radiation dose to as low as reasonably achievable. Dictated by Jens Collins MD @ 01/18/2024 10:56:27 PM (Electronically Signed) Procedure Note Jens Collins MD - 01/18/2024 For Patients: As a result of the Cures Act, medical imagingexams and procedure reports are released immediately into your electronicmedical record. You may view this report before your referring provider.If you have questions, please contact your health care provider. Indication: Fall Technique: Noncontrast CT through the cervical spine with multiplanar reformats Comparison: None Findings: Alignment: Nonspecific reversal of the normal lordotic curvature. MildC3-4 anterolisthesis. Mild C6-7 retrolisthesis. Mild C7-Z4fjvmihnvpgatrov. Bones: No acute fracture. No lytic or blastic lesion. Cervical levels: No acute abnormality appreciated. Eire-ec-asslauqqaxeozxzgrq degenerative changes. Soft tissues: No acute abnormality appreciated. Impression: No acute abnormality appreciated. Please note that all CT scans at this facility use dose modulation,iterative reconstruction, and/or weight-based dosing when appropriate toreduce radiation dose to as low as reasonably achievable. Dictated by Jens Collins MD @ 01/18/2024 10:56:27 PM (Electronically Signed) Jose Raul Edwards MD CT * CT HEAD BRAIN WO (01/18/2024 10:16 PM CDT) Anatomical Region Laterality Modality HEAD, BRAIN Computed Tomogra phy 01/18/2024 10:5 4 PM CDT Narrative 01/18/2024 10:54 PM CDT For Patients: ??As a result of the Cures Act, medical imaging exams and procedure reports are released immediately into your electronic medical record. ??You may view this report before your referring provider. ??If you have questions, please contact your health care provider. Indication: Fall, loss of consciousness Technique: Noncontrast CT through the head with multiplanar reformats Comparison: None Findings: Brain: No acute hemorrhage. No acute infarct. No significant mass effect or midline shift. No gross evidence of a mass lesion or cerebral edema. Mild chronic microvascular ischemic disease. Moderate global parenchymal volume loss. Ventricles: No acute abnormality appreciated. Orbits, sinuses, mastoids: No acute abnormality appreciated. Calvarium and soft tissues: No acute abnormality appreciated. Impression: No acute abnormality appreciated. Please note that all CT scans at this facility use dose modulation, iterative reconstruction, and/or weight-based dosing when appropriate to reduce radiation dose to as low as reasonably achievable. Dictated by Jens Collins MD @ 01/18/2024 10:54:17 PM (Electronically Signed) Procedure Note Jens Collins MD - 01/18/2024 For Patients: As a result of the Cures Act, medical imagingexams and procedure reports are released immediately into your electronicmedical record. You may view this report before your referring provider.If you have questions, please contact your health care provider. Indication: Fall, loss of consciousness Technique: Noncontrast CT through the head with multiplanar reformats Comparison: None Findings: Brain: No acute hemorrhage. No acute infarct. No significant mass effector midline shift. No gross evidence of a mass lesion or cerebral edema.Mild chronic microvascular ischemic disease. Moderate global parenchymalvolume loss. Ventricles: No acute abnormality appreciated. Orbits, sinuses, mastoids: No acute abnormality appreciated. Calvarium and soft tissues: No acute abnormality appreciated. Impression: No acute abnormality appreciated. Please note that all CT scans at this facility use dose modulation,iterative reconstruction, and/or weight-based dosing when appropriate toreduce radiation dose to as low as reasonably achievable. Dictated by Jens Collins MD @ 01/18/2024 10:54:17 PM (Electronically Signed) Jose Raul Edwards MD CT * (ABNORMAL) ETHANOL SERUM OR PLASMA (01/18/2024 9:44 PM CDT) ETHANOL 0.205(H) <0.010 g/dL 01/18/2024 10:13 PM CDT [facility] Blood BLOOD SPECIMEN / Unknown Venipuncture / Unknown 01/18/2024 9:44 PM CDT 01/18/2024 9:50 PM CDT Jose Raul Edwards MD CHEMISTRY Performing Organization Address City/[facility]/ZIP Co de Phone Number [facility] [address] [place] [address], * MAGNESIUM (01/18/2024 9:44 PM CDT) Only the most recent of3 resultswithin the time period is included. MAGNESIUM 1.9 1.6 - 2.4 mg/dL 01/18/2024 10:41 PM CDT [facility] Blood BLOOD SPECIMEN / Unknown Venipuncture / Unknown 01/18/2024 9:44 PM CDT 01/18/2024 9:50 PM CDT Jose Raul Edwards MD CHEMISTRY [facility] [address] [place] [address], * (ABNORMAL) CBC W PLT NO DIFF (01/18/2024 9:11 PM CDT) Only the most recent of5 resultswithin the time period is included. WHITE BLOOD COUNT 7.6 4.5 - 11.0 thou/cu mm 01/18/2024 9:26 PM CDT [facility] RED BLOOD COUNT 3.44(L) 4.00 - 5.20 mil/cu mm 01/18/2024 9:26 PM CDT [facility] HEMOGLOBIN 12.0 12.0 - 16.0 g/dL 01/18/2024 9:26 PM CDT [facility] HEMATOCRIT 34.8 33.0 - 51.0 % 01/18/2024 9:26 PM CDT [facility] MCV 101(H) 80 - 100 fL 01/18/2024 9:26 PM CDT [facility] MCH 34.9(H) 26.0 - 34.0 pg 01/18/2024 9:26 PM CDT [facility] MCHC 34.5 32.0 - 36.0 g/dL 01/18/2024 9:26 PM CDT [facility] RDW 12.8 11.5 - 15.5 % 01/18/2024 9:26 PM CDT [facility] PLATELET COUNT 148 140 - 440 thou/cu mm 01/18/2024 9:26 PM CDT [facility] MPV 9.2 6.5 - 11.0 fL 01/18/2024 9:26 PM CDT [facility] NRBC 0.0 % 01/18/2024 9:26 PM CDT [facility] ABS NRBC 0.0 thou /cu mm 01/18/2024 9:26 PM CDT [facility] Blood BLOOD SPECIMEN / Unknown Butterfly / Unknown 01/18/2024 9:11 PM CDT 01/18/2024 9:21 PM CDT Jose Raul Edwards MD HEMATOLOGY [facility] [address] [place] [address], [place] * (ABNORMAL) BASIC METABOLIC PANEL (01/18/2024 9:11 PM CDT) Only the most recent of5 resultswithin the time period is included. SODIUM 137 136 - 145 mmol/L 01/18/2024 9:44 PM CDT [facility] POTASSIUM 3.5 3.5 - 5.1 mmol/L 01/18/2024 9:44 PM CDT [facility] CHLORIDE 100 98 - 107 mmol/L 01/18/2024 9:44 PM CDT [facility] CO2,TOTAL 26 22 - 29 mmol/L 01/18/2024 9:44 PM CDT [facility] ANION GAP 11 5 - 18 01/18/2024 9:44 PM CDT [facility] GLUCOSE 117(H) 70 - 99 mg/dL 01/18/2024 9:44 PM CDT [facility] CALCIUM 9.4 8.8 - 10.2 mg/dL 01/18/2024 9:44 PM CDT [facility] BUN 8 8 - 23 mg/dL 01/18/2024 9:44 PM CDT [facility] CREATININE 0.60 0.50 - 0.90 mg/dL 01/18/2024 9:44 PM CDT [facility] BUN/CREAT RATIO 13 10 - 20 9:44 PM CDT [facility] eGFR >90 >90 mL/min/1.7 3m2 01/18/2024 9:44 PM CDT [facility] Comment:As of 2021, eG FR is calculated by the CKD-EPI creatinine equation without race adjustment. ??eGFR can be influenced by muscle mass, exercise, and diet. ??The reported eGFR is an estimation only and is only applicable if the renal function is stable. Blood BLOOD SPECIMEN / Unknown Butterfly / Unknown 01/18/2024 9:11 PM CDT 01/18/2024 9:21 PM CDT Jose Raul Edwards MD CHEMISTRY Performing Organization Address [facility]/[place] Co de Phone Number [facility] [address] [place] [address], [place] * SCAN-CARDIAC STRIP (01/17/2024 8:25 AM CDT) Scanner OTHER * PROTIME-INR (01/17/2024 6:59 AM CDT) Only the most recent of2 resultswithin the time period is included. INR 1.0 <1.3 01/17/2024 7:32 AM CDT [facility] PROTIME 10.9 10.3 - 12.3 sec 01/17/2024 7:32 AM CDT [facility] Blood BLOOD SPECIMEN / Unknown Venipuncture / Unknown 01/17/2024 6:59 AM CDT 01/17/2024 7:[address] [facility] - 01/17/2024 7:32 AM CDT ?Therapeutic Range 2.0-3.0 for most anticoagulated patients 2.5-3.5 or 4.0 for high risk patients The INR is only used for patients on stable oral anticoagulant therapy. It makes no significant contribution to the diagnosis or treatment of patients whose Protime is prolonged for other reasons. INR results are increased when heparin levels exceed 1.0 U/mL, which corresponds to an aPTT >125 seconds if the patient is on UFH. Nick Sanders MD HEMATOLOGY Performing Organization Address [facility]/[place] Co de Phone Number [facility] [address] * EKG - In AM (01/17/2024 5:26 AM CDT) Only the most recent of4 resultswithin the time period is included. Interpretation Normal sinus rhythm Normal ECG When compared with ECG of 16-Jan-2024 09:31, No significant change was found BEYOND NOW Ventricular Rate 95 BPM BEYOND NOW Atrial Rate 95 BPM BEYOND NOW P-R Interval 140 ms BEYOND NOW QRS Duration 68 ms BEYOND NOW QT 372 ms BEYOND NOW QTc 467 ms BEYOND NOW P [place] 75 degrees BEYOND NOW R [place] 57 degrees BEYOND NOW T [place] 70 degrees BEYOND NOW 01/17/2024 5:26 AM CDT 01/17/2024 12:44 PM CDT Nick Sanders MD EKG ORD BEYOND NOW [place], [place] * SCAN-CARDIAC STRIP (01/17/2024 3:12 AM CDT) Scanner OTHER * SCAN-CARDIAC STRIP (01/16/2024 7:31 PM CDT) Scanner OTHER * SCAN-CARDIAC STRIP (01/16/2024 5:06 PM CDT) Scanner OTHER * ECHO TTE LIMITED W CONTRAST W COLOR W DOPPLER (01/16/2024 11:21 AM CDT) AORTIC VALVE MEAN PG 3 mmHg EJECTION FRACTION 70 - 75% Anatomical Region Laterality Modality Ultrasound 01/16/2024 10:1 4 AM CDT Narrative 01/16/2024 11:51 AM CDT ECHOCARDIOGRAM BRIDGET A SHRUTI ? Accession#: ?? [id number] : ?1950 74 years Study Date: ?? 01/16/2024 10:14:55 AM Gender: F ?BP: ? 134/94 mmHg Height: 153.00 cm ?BSA: ?1.48 m? ? ? Weight: 52.00 kg ? Tech: ? KBA ? Referring MD: ISAURO TOVAR Site: ? [facility] Reading Location: [facility] OP Patient Location: Outpatient. Procedure: Limited Echo w/ Contrast, Color Doppler and Limited Spectral Doppler. Indication for study: Post TAVR Cardiac Rhythm: Normal sinus.Study quality: Good. Imaging limitations: This study was subject to imaging limitations due to lying in a supine position. Final Impressions: Limited Echocardiogram performed 1. Normal LV size, mildly increased wall thickness, normal global systolic function with an estimated EF of 70 - 75%. 2. Right ventricular cavity size is normal, global systolic RV function is normal. 3. The aortic valve is functioning 23 mm Haque Dominguez S3, no stenosis (see details below) and no regurgitation. There is no paravalvular regurgitation. 4. The mitral valve is sclerotic, no mitral regurgitation. 5. Echo contrast was administered to enhance visualization of all left ventricular segments. Comparison Compared to prior exam of 09/19/23: There has been interval replacement of the aortic valve. Chamber Sizes and Function Normal left ventricular size, mildly increased wall thickness, normal global systolic function with an estimated EF of 70 - 75%. Right ventricular cavity size is normal, global systolic RV function is normal. RV wall thickness is normal. The pulmonary artery is not well visualized. Valves, RV Pressures and Diastolic Function The aortic valve is functioning 23 mm Haque Dominguez S3, no stenosis and no regurgitation. There is no paravalvular reguritation. The mitral valve is sclerotic, no mitral regurgitation. The mitral valve peak velocity is 1.28 m/s and the mean gradient is 2.4 mmHg. Mild mitral annular calcification is present. The tricuspid valve is not well visualized. Tricuspid regurgitation is not evident. The pulmonic valve is not well visualized. Trace pulmonic regurgitation is present on color flow. Masses, Effusion, Shunts There is no pericardial effusion. The inferior vena cava is normal sized, respiratory size variation greater than 50%. MEASUREMENTS AND CALCULATIONS 2-D Measurements and LV Function: LVOT diameter 1.8 cm HR ?84 bpm Aortic Valve: Vmax ? 1.2 m/s ??DIDIER (V) ?? 2.41 cm? ? ? VTI ?0.21 m ?? DIDIER (I) ?? 2.51 cm? ? ? LVOT V max 1.1 m/s ??Max PG ?6 mmHg LVOT VTI ?? 0.20 m ?? Mean PG ?? 3 mmHg SV ? 52 ml ?Dim Index 0.98 SV index ?? 35 ml/m? ? ? CO ?4.3 l/min ?CI ?2.9 l/min/m? ? ? Mitral Valve: MV Mean G 2 mmHg MV VTI ?0.20 m Tricuspid Valve and estimated PA pressures: TAPSE 1.9 cm Pulmonic Valve: PV AT 135 msec Contrast documentation: 2 ml diluted Definity, lot #[id number], [facility]# [id number] was administered peripherally to enhance visualization of all left ventricular segments. . This study was interpreted by an [facility] accredited facility. ??Final ?? Procedure Note Steve Bell MD - 01/16/2024 ECHOCARDIOGRAM BRIDGET MAGANA : 1950 74 years Study Date: 01/16/2024 10:14:55 AM Gender: F BP: 134/94 mmHg Height: 153.00 cm BSA: 1.48 m? ? ? Weight: 52.00 kg Tech: PEREZ Referring MD: ISAURO TOVAR Site: [facility] Reading Location: [facility] OP Patient Location: Outpatient. Procedure: Limited Echo w/ Contrast, Color Doppler and Limited SpectralDoppler. Indication for study: Post TAVR Cardiac Rhythm: Normal sinus.Study quality: Good. Imaging limitations: This study was subject to imaging limitations due tolying in a supine position. Final Impressions: Limited Echocardiogram performed 1. Normal LV size, mildly increased wall thickness, normal globalsystolic function with an estimated EF of 70 - 75%. 2. Right ventricular cavity size is normal, global systolic RV functionis normal. 3. The aortic valve is functioning 23 mm Haque Dominguez S3, no stenosis(see details below) and no regurgitation. There is no paravalvularregurgitation. 4. The mitral valve is sclerotic, no mitral regurgitation. 5. Echo contrast was administered to enhance visualization of all leftventricular segments. Comparison Compared to prior exam of 09/19/23: There has been interval replacement of the aortic valve. Chamber Sizes and Function Normal left ventricular size, mildly increased wall thickness, normalglobal systolic function with an estimated EF of 70 - 75%. Rightventricular cavity size is normal, global systolic RV function is normal.RV wall thickness is normal. The pulmonary artery is not wellvisualized. Valves, RV Pressures and Diastolic Function The aortic valve is functioning 23 mm Haque Dominguez S3, no stenosis andno regurgitation. There is no paravalvular reguritation. The mitral valveis sclerotic, no mitral regurgitation. The mitral valve peak velocity is1.28 m/s and the mean gradient is 2.4 mmHg. Mild mitral annularcalcification is present. The tricuspid valve is not well visualized.Tricuspid regurgitation is not evident. The pulmonic valve is not wellvisualized. Trace pulmonic regurgitation is present on color flow. Masses, Effusion, Shunts There is no pericardial effusion. The inferior vena cava is normal sized,respiratory size variation greater than 50%. MEASUREMENTS AND CALCULATIONS 2-D Measurements and LV Function: LVOT diameter 1.8 cm HR 84 bpm Aortic Valve: Vmax 1.2 m/s DIDIER (V) 2.41 cm? ? ? VTI 0.21 m DIDIER (I) 2.51 cm? ? ? LVOT V max 1.1 m/s Max PG 6 mmHg LVOT VTI 0.20 m Mean PG 3 mmHg SV 52 ml Dim Index 0.98 SV index 35 ml/m? ? ? CO 4.3 l/min CI 2.9 l/min/m? ? ? Mitral Valve: MV Mean G 2 mmHg MV VTI 0.20 m Tricuspid Valve and estimated PA pressures: TAPSE 1.9 cm Pulmonic Valve: PV AT 135 msec Contrast documentation: 2 ml diluted Definity, lot #[id number], [facility]#[id number] was administered peripherally to enhance visualization of allleft ventricular segments. . This study was interpreted by an [facility] accredited facility. Final Isauro Tovar TERMINOLOGIST ECHO ORD * CVL OTHER PROCEDURE (01/16/2024 9:38 AM CDT) Anatomical Region Laterality Modality X-Ray Angiograph y Narrative Procedure Note Kostas Jimenez MD - 01/16/2024 9:38 AM CDT DATE OF SERVICE: 01/16/2024 PREOPERATIVE DIAGNOSIS: Severe and symptomatic aortic stenosis. PROCEDURES: 1. Right transfemoral TAVR. 2. S3-23+1.5 mL. 3. Aortic angiography. 4. Temporary pacemaker. 6. Perclose groin closure. PROCEDURE NOTE: In the usual manner with ultrasound, vascular access was obtained via theright femoral artery and large bore sheath was brought into the distalabdominal aorta. Through this, a Safari wire was easily established inthe LV apex. Via the right femoral vein, a balloon-tipped temporarypacemaker was brought into the RV apex and via the left femoral site, anangled pigtail was brought to the proximal aorta. With the assistance ofoverdrive pacing, a coplanar aortic root angiogram was carried out. AnS3-23+1.5 mL contrast was brought to the thoracic aorta and assembled inthe usual manner. It was then stably delivered and deployed inappropriate relation to the aortic valve annulus using overdrive pacing.There was no AI. There was no AV block or bundle branch block. Theresidual gradient was 4 mmHg. There were no complications. Anticipateearly discharge tomorrow. Results are automatically released to your [employer] (StatusPage) accountonce available, in compliance with federal regulations. This means thatyou may see your results before your provider has had a chance to reviewthem. Please allow 2-3 business days for your provider to comment on theresults. KOSTAS JIMENEZ MD MRM/ADE/VEE/ANGELO VJID: [id number] TJID: [id number] cc: BELLA CAMPO MD Kostas Jimenez MD CV IMAGING * (ABNORMAL) ACTIVATED CLOTTING TIME [id number] ACT (01/16/2024 8:38 AM CDT) [facility] ACTIVATED CLOTTING TIME, POCT 211(H) 74 - 125 sec 01/18/2024 1:00 PM CDT [facility] Blood BLOOD SPECIMEN / Unknown 01/16/2024 8:38 AM CDT 01/18/2024 1:00 PM CDT Kostas Jimenez MD HEMATOLOGY [facility] [address] [place] [address], * CVL TAVR (01/16/2024 8:21 AM CDT) Anatomical Region Laterality Modality X-Ray Angiograph y 01/16/2024 8:21 AM CDT Kostas Jimenez MD CV IMAGING * RBC W/O TYPE & SCREEN (01/16/2024 7:29 AM CDT) [facility] QUANTITY 2 01/16/2024 7:2 9 AM CDT [facility] Blood BLOOD SPECIMEN / Unknown 01/16/2024 7:29 AM CDT Kostas Jimenez MD BLOOD BANK [facility] [address] [place] [address], * RED BLOOD CELLS EA UNIT (01/16/2024 7:29 AM CDT) Only the most recent of2 resultswithin the time period is included. CROSSMATCH Compatible Compatible [facility] [employer] [facility] BLOOD BANK PRODUCT BLOOD TYPE A Rh Negative [facility] BLOOD B[facility] PRODUCT ID NUMBER [id number] [facility] BLOOD BANK PRODUCT STATUS /Relea sed [facility] BLOOD BANK PRODUCT DESCRIPTION RBC -1 LR [facility] BLOOD BANK PRODUCT CODE [id number] [facility] Kostas Jimenez MD BLOOD BANK Performing Organization Address City/[facility]/ZIP Co de Phone Number [facility] [address] [place] [address], [place] [phone] * TYPE & SCREEN (01/16/2024 6:31 AM CDT) Only the most recent of2 resultswithin the time period is included. Pathologist [facility] ABORH A Rh Negative 01/16/2024 7:19 AM CDT [facility] ANTIBODY SCREEN Negative Negative 01/16/2024 7:19 AM CDT [facility] SPECIMEN EXPIRATION DATE/TIME 01/19/24 23:59 01/16/2024 7:19 AM CDT [facility] Blood BLOOD SPECIMEN / Unknown Venipuncture / Unknown 01/16/2024 6:31 AM CDT 01/16/2024 6:40 AM CDT Isauro Tovar NP BLOOD BANK [facility] [address] [place] [address], [place] [phone] * (ABNORMAL) POTASSIUM (01/16/2024 6:31 AM CDT) POTASSIUM 3.4(L) 3.5 - 5.1 mmol/L 01/16/2024 4:04 PM CDT [facility] Blood BLOOD SPECIMEN / Unknown Venipuncture / Unknown 01/16/2024 6:31 AM CDT 01/16/2024 6:40 AM CDT Kostas Jimenez MD CHEMISTRY Performing Organization Address City/[facility]/[place] Co de Phone Number [facility] [address] [address], [place] * Glucose, Fasting (01/16/2024 6:31 AM CDT) GLUCOSE 95 70 - 99 mg/dL 01/16/2024 7:11 AM CDT [facility] Blood BLOOD SPECIMEN / Unknown Venipuncture / Unknown 01/16/2024 6:31 AM CDT 01/16/2024 6:40 AM CDT Isauro Tovar NP CHEMISTRY Performing Organization Address [facility] Phone Number [facility] [address] [address], [place] * CREATININE (01/16/2024 6:31 AM CDT) eGFR >90 >90 mL/min/1.7 3m2 01/16/2024 7:50 PM CDT [facility] Comment:As of 2021, eG FR is calculated by the CKD-EPI creatinine equation without race adjustment. ??eGFR can be influenced by muscle mass, exercise, and diet. ??The reported eGFR is an estimation only and is only applicable if the renal function is stable. CREATININE 0.66 0.50 - 0.90 mg/dL 01/16/2024 7:50 PM CDT [facility] Blood BLOOD SPECIMEN / Unknown Venipuncture / Unknown 01/16/2024 6:31 AM CDT 01/16/2024 6:40 AM CDT Kostas Jimenez MD CHEMISTRY Performing Organization Address [facility]/[place] Co de Phone Number [facility] [address] [address], [place] * FRUIT CANNER QUESTION TEST (01/09/2024 9:57 AM CDT) QABT Question Yes 01/09/2024 10:11 AM CDT [facility] BLO[facility] B[facility] Blood BLOOD SPECIMEN / Unknown Venipuncture / Unknown 01/09/2024 9:57 AM CDT 01/09/2024 10:07 AM CDT Kostas Jimenez MD BLOOD BANK [facility] B[facility] [address] [place] [address], * (ABNORMAL) LIPID PANEL W REFLEX MEASURED LDL (01/09/2024 9:57 AM CDT) CHOLESTEROL,TOTAL 239(H) 100 - 199 mg/dL 01/09/2024 10:36 AM CDT [facility] Comment: Cholesterol, Total Reference Ranges Desirable <200 mg/dL Borderline 200-239 mg/dL High >=240 mg/dL TRIGLYCERIDES 211(H) <150 mg/dL 01/09/2024 10:36 AM CDT [facility] HDL CHOLESTEROL 85 >40 mg/dL 10:36 AM CDT [facility] NON-HDL CHOLESTEROL 154(H) <145 mg/dl 01/09/2024 10:36 AM CDT [facility] CHOL/HDL RATIO 2.81 <4.50 01/09/2024 10:36 AM CDT [facility] LDL CHOLESTEROL 112 <=130 mg/dL 01/09/2024 10:36 AM CDT [facility] VLDL CHOLESTEROL 42(H) <=30 mg/dL 01/09/2024 10:36 AM CDT [facility] PROVIDER ORDERED STATUS RANDOM 01/09/2024 10:36 AM CDT [facility] Blood BLOOD SPECIMEN / Unknown Venipuncture / Unknown 01/09/2024 9:57 AM CDT 01/09/2024 10:06 AM CDT Bella Durham Yasmine KAMARA CHEMISTRY [facility] [address] [place] [address], * ALBUMIN (01/09/2024 9:57 AM CDT) ALBUMIN 4.3 4.0 - 4.9 g/dL 01/09/2024 10:36 AM CDT [facility] Blood BLOOD SPECIMEN / Unknown Venipuncture / Unknown 01/09/2024 9:57 AM CDT 01/09/2024 10:06 AM CDT Kostas Jimenez MD CHEMISTRY Performing Organization Address City/[facility]/ZIP Co de Phone Number [facility] [address] [place] [address], * CVL CORONARY ANGIOGRAM POSS PCI (01/04/2024 8:21 AM CDT) Anatomical Region Laterality Modality X-Ray Angiograph y, X-Ray Angiography 01/04/2024 8:21 AM CDT Narrative Procedure Note Kostas Jimenez MD - 01/04/2024 12:59 PM CDT DATE OF SERVICE: 01/04/2024 PREOPERATIVE DIAGNOSIS: Preoperative angiography - TAVR. PROCEDURES: 1. Coronary arteriography. 2. Perclose groin closure. FINDINGS: 1. Left main coronary artery is normal. 2. Left anterior descending is a type 3 vessel and is normal. 3. Circumflex is nondominant and normal. 4. The right coronary artery is dominant and normal. SUMMARY FINDINGS: 1. Pre-TAVR angiography. 2. Normal coronaries. 3. Perclose groin closure. 4. Proceed with TAVR treatment planning. Results are automatically released to your [employer] (StatusPage) accountonce available, in compliance with federal regulations. This means thatyou may see your results before your provider has had a chance to reviewthem. Please allow 2-3 business days for your provider to comment on theresults. MD JON GUTIERREZ/DAVID/ANGELO VJID: [id number] TJID: [id number] cc: BELLA KUMAR DO Provider Referring CV IMAGING * (ABNORMAL) LIPID PANEL (12/28/2023 3:08 PM CDT) CHOLESTEROL,TOTAL 212(H) 100 - 199 mg/dL 12/28/2023 4:17 PM CDT [facility] Comment: Cholesterol, Total Reference Ranges Desirable <200 mg/dL Borderline 200-239 mg/dL High >=240 mg/dL TRIGLYCERIDES 87 <150 mg/dL 12/28/2023 4:17 PM CDT [facility] HDL CHOLESTEROL 95 >40 mg/dL 4:17 PM CDT [facility] NON-HDL CHOLESTEROL 117 <145 mg/dl 12/28/2023 4:17 PM CDT [facility] CHOL/HDL RATIO 2.23 <4.50 12/28/2023 4:17 PM CDT [facility] LDL CHOLESTEROL 100 <=130 mg/dL 12/28/2023 4:17 PM CDT [facility] VLDL CHOLESTEROL 17 <=30 mg/dL 12/28/2023 4:17 PM CDT [facility] PROVIDER ORDERED STATUS RANDOM 12/28/2023 4:17 PM CDT [facility] Blood BLOOD SPECIMEN / Unknown Venipuncture / Unknown 12/28/2023 3:08 PM CDT 12/28/2023 3:16 PM CDT Nick Sanders MD [facility] [address] [place] [address], [place] * CT CHEST SCREENING LOW DOSE WO CONTRAST [[id number]] -- NOTE: to meet CMS requirements, this order ONLYto be placed by the person completing the Shared Decision Making Visit (12/18/2023 10:52 AM CDT) Anatomical Region Laterality Modality Computed Tomogra phy Impressions 12/19/2023 12:40 PM CDT Stable pulmonary nodules. Lung-RADS Category 2: ??Benign appearance or behavior. Continue annual screening with low-dose chest CT in 12 months. Please note that all CT scans at this facility use dose modulation, iterative reconstruction and/or weight-based dosing when appropriate to reduce radiation dose to as low as reasonably achievable. ?? Dictated by: Kurt Means MD @12/18/2023 11:23:52 AM Neuroradiologist CRL:cynthia Narrative 12/19/2023 12:40 PM CDT For Patients: As a result of the Cures Act, medical imaging exams and procedure reports are released immediately into your electronic medical record. ??You may view this report before your referring provider. ?? If you have questions, please contact your health care provider. CT CHEST SCREENING LOW-DOSE WITHOUT CONTRAST, 12/18/2023 INDICATION Lung cancer screening. TECHNIQUE: Noncontrast CT images of the chest. COMPARISON: CT chest 12/15/2022. FINDINGS: Stable solid 6 mm nodule right upper lobe (series 5 image 33). Stable solid 4 mm nodule right upper lobe anteriorly (series 5 image 42). Stable solid 5 mm nodule right lower lobe (series 5 image 80). Stable solid 5 mm nodule right lower lobe (series 5 image 111). Stable solid nodules in the left lower lobe measuring up to 7 mm (series 5 image 99). No new or enlarging pulmonary nodules. Moderate upper lobe predominant centrilobular emphysema. Biapical scarring. No focal consolidation, pleural effusion, or pneumothorax. Calcified granulomas. The heart size is normal. No pericardial effusion. Coronary artery atherosclerotic calcifications. No mediastinal or hilar lymphadenopathy. Calcified left hilar lymph nodes. Splenic and hepatic granulomas. No aggressive osseous lesions. Scar Guerrero MD CT * CTA CHEST ABD PELVIS TAVR - [...] PATIENT: Results are automatically released to your [employer] (StatusPage) account once available, in compliance with federal regulations. ?? This means that you may see your results before your provider has had a chance to review them. ??Please allow 2-3 business days for your provider to comment on the results. Jose Raul Boyd MD [facility] 11/05/2023 ?? For Patients: As a result of the Cures Act, medical imaging exams and procedure [...] conjunction with the services provided by the [facility] ([facility]). CLINICAL HISTORY: ??Aortic valve stenosis. Cardiac [...] Visualized osseous structures demonstrate diffuse degenerative changes. Kostas Jimenez MD CT * (ABNORMAL) CREATININE,ISTAT (11/05/2023 9:42 AM CDT) CREATININE, POCT 0.80 0.57 - 1.11 mg/dL 11/05/2023 9:44 AM CDT [facility] Comment:Caution: Patients ta izaiah Hydroxyurea have falsely increased iStat Creatinine results. Verify creatinine results ordering a Creatinine (50127.2) eGFR 78(L) >90 mL/min/1.7 3m2 11/05/2023 9:44 AM CDT [facility] Comment:As of 2021, eG FR is calculated by the CKD-EPI creatinine equation without race adjustment. eGFR can be influenced by muscle mass, exercise, and diet. The reported eGFR is an estimation only and is only applicable if the renal function is stable. Blood BLOOD SPECIMEN / Unknown 11/05/2023 9:42 AM CDT 11/05/2023 9:44 AM CDT Kostas Jimenez MD CHEMISTRY Performing Organization Address City/[facility]/ZIP Co de Phone Number [facility] [id number] * HEMATOCRIT (10/31/2023 10:17 AM CDT) [facility] HEMATOCRIT 44.8 33.0 - 51.0 % 10/31/2023 10:59 AM CDT [facility] Blood BLOOD SPECIMEN / Unknown Venipuncture / Unknown 10/31/2023 10:17 AM CDT 10/31/2023 10:17 AM CDT Narrative [facility] - 10/31/2023 10:59 AM CDT This procedure was originally ordered at [facility]. Kostas Jimenez MD HEMATOLOGY [facility] [address] [place] [address] * XR MAMMO KAIA BILAT SCREEN (01/30/2023 [...] care provider. XR MAMMO KAIA BILAT SCREEN [[id number]] CLINICAL HISTORY: ??This is an asymptomatic 73 y.o. patient. INDICATION FOR EXAM: Mammogram Screening. TECHNIQUE: CC & MLO views were obtained. ??This study was evaluated with the assistance of Computer-Aided Detection. Breast Tomosynthesis was used in interpretation. COMPARISON FILM: Yes 01/25/22 [facility] 01/24/21 [facility] FINDINGS: ??The breasts are heterogeneously dense, which may obscure small masses. There are no dominant masses, suspicious micro calcifications or areas of architectural distortion. Bella Kumar DO MAMMO * (ABNORMAL) XR DXA BONE DENSITY 2 SITES AXIAL (05/23/2021 11:09 AM RETAIL TEAM LEADER) Anatomical Region Laterality Modality Spine, HIPS, HIPL, HIPR Other Impressions 05/30/2021 8:21 AM RETAIL TEAM LEADER Osteopenia with elevated hip fracture risk. Given [...] Roz Suarez PA-C Narrative 05/30/2021 8:21 AM RETAIL TEAM LEADER For Patients: Results are automatically released to your [facility] account once available, in compliance with federal regulations. This means that you may see your results before your provider has had a chance to review them. Please allow 2-3 business days for your provider to comment on the results. XR DXA Bone Mineral Density (BMD) EXAM LOCATION: [facility] [address] [facility] [id number] PATIENT NAME: Bridget Magana DATE OF : 1950 EXAM DATE: 05/23/2021 REQUESTING PROVIDER: Bella Kumar, DO GENDER AT : female HEIGHT: 5' [...] two scanners are made by the same online facilitator. PROCEDURE: Dual-energy x-ray absorptiometry performed with routine [...] DEXA * COLONOSCOPY SCREENING (05/09/2021 12:00 AM RETAIL TEAM LEADER) David Prince MD GI PROCEDURE ORD from Last 3 Months or Most Recently Relevant to Health Maintenance Advance Directives * DNR (Latest Code Status on File) Date Activated Date Inactivated Comments 01/19/2024 2:49 AM 01/20/2024 6:36 PM Question Answer Comments Code Status Discussion: Reviewed Preferences * Full Code Date Activated Date Inactivated Comments 01/16/2024 9:11 AM 01/17/2024 3:02 PM Question Answer Comments Code Status Discussion: Reviewed Preferences * Full Code Date Activated Date Inactivated Comments 01/04/2024 8:38 AM 01/04/2024 1:26 PM Question Answer Comments Code Status Discussion: Reviewed Preferences * Full Code Date Activated Date Inactivated Comments 09/28/2010 2:20 PM 09/29/2010 12:14 AM Care Teams Customer Counter Representative Relationship Specialty Start Date End Date Bella KumarDO [address] [facility] [address] PCP - General Family Practice 04/18/19 Kostas Ramachandran MD [address] [place] [address] Family Practice 01/03/17 Mohan Chaves MD [address] [place] [id number] Surgery - Orthopedics 01/03/17
== END 2024-01-18 19:43 | disposition home or self-care (01) ==
LOC: AMB 01-21 23:42
PROVIDERS: PCP Family Medicine; Visit Provider Emergency Medicine Emergency Medical Services
DX: S29.9XXA Unspecified injury of thorax, initial encounter (principal); W18.30XA Fall on same level, unspecified, initial encounter; Y92.000 Kitchen of unspecified non-institutional (private) residence as the place of occurrence of the external cause
CPT/HCPCS: A0425; A0427

== ENCOUNTER 2024-12-09 08:58 | Outpatient (CLI) | payer MEDICARE, BC, SELFPAY | END 2024-12-09 08:59 | disposition home or self-care (01) | LOC: AMB 12-11 10:42 | PROVIDERS: PCP Family Medicine; Visit Provider Family Medicine | DX: R47.81 Slurred speech (principal); M54.9 Dorsalgia, unspecified | CPT/HCPCS: A0425; A0427 ==

== ENCOUNTER 2024-12-09 09:18 | Emergency (ER) | payer MEDICARE, BC, SELFPAY ==
[2024-12-09] VITALS (33 sets, daily range): BP systolic 121–147; BP diastolic 73–86; PULSE 95–122; RESP 10–36; TEMP 36.6; O2SAT 87–96; BMI 23.8
--- OUTSIDE RECORDS SUMMARY | 2024-12-09 09:22 | XMS_ITS | Clinical Summary ---
Author Organization [facility] Address [address] [place] [address] Care Team Providers Care Wash House Supervisor Name Role Phone Jun Ramachandran MD Unavailable [phone] Mohan Chaves MD Unavailable Jacki Underwood DO Primary Care Provider [phone] Allergies Active Allergy Reactions Criticality Noted Date Comments Adhesive Angioedema 11/24/2013 Aspirin Hives,Shortness Of Breath 02/19/2007 Severe Fahemngi-Ovadgstegr-O olymyxin Rash,Edema,Erythema 02/19/2007 The eye drops only Psyllium Hives,Edema 02/19/2007 Ketorolac Hives 01/18/2016 Medications CALTRATE 600+D PLUS MINERALS 600 MG (1,500 MG)-400 UNIT CHEWABLE TABIndications:Di sorder of bone and cartilage, unspecified Chew 1 [...] 10 mg by mouth once daily. Active umeclidinium-mady nteroL (Anoro Ellipta) 62.5-25 mcg/actuation inhalerIndication s:Chronic obstructive pulmonary disease, unspecified COPD type (HC) Inhale 1 Puff by mouth once daily. Discard inhaler 6 weeks after opening or when the counter reads '0' (after all blisters have been used), whichever comes first. 60 Each 11 4 Active alendronate (FOSAMAX) 70 mg tabletIndications :Osteopenia with high risk of fracture Take 1 Tablet (70 mg) by mouth once a week in the morning. Take on empty stomach with full glass of water. Do not lie down for 1 hr. 13 Tablet 3 4 Active albuterol HFA (ProAir HFA) 90 mcg/actuation inhalerIndication s:Moderate persistent asthma without complication (HC) Inhale 1-2 Puffs by mouth every 6 hours if needed for Wheezing. 1 Each 3 4 Active albuterol-ipratro pium (DUONEB) (2.5-0.5 mg) in 3 mL NEBULIZATION solution Inhale 1 Neb via a nebulizer 4 times daily if needed. Active oxyCODONE (ROXICODONE) 5 mg immediate release tabletIndications :Closed fracture of second lumbar vertebra, unspecified fracture morphology, initial encounter (HC),Acute back pain, unspecified back location, unspecified back pain laterality Take 1 Tablet (5 mg) by mouth every 4 hours if needed for Pain (For moderate to severe pain.). 10 Tablet 01/20/2024 2:06 PM CDT 4 Active diltiazem 24 hour (CARDIZEM LA) 360 mg extended release 24 hr tabletIndications :SVT (supraventricular tachycardia) (HC),HTN (hypertension) Take 1 Tablet (360 mg) by mouth once daily. 90 Tablet 3 4 Active furosemide (Lasix) 20 mg tabletIndications :Pedal edema Take 0.5 Tablets (10 mg) by mouth once daily if needed (pedal edema). 30 Tablet 1 5 Active warfarin 2 mg tabletIndications :S/P TAVR (transcatheter aortic valve replacement),Hypo attentuated leaflet thickening (HALT),Anticoagul ation monitoring, INR range 2-3 Take by mouth 2 mg (2 mg x 1) every day in the evening OR as directed 91 Tablet 5 Active Active Problems Problem Noted Date Diagnosed Date Anticoagulation monitoring, INR range 2-3 2023 Hypoattentuated leaflet thickening (HALT) 2023 S/P TAVR (transcatheter aortic valve replacement ) 01/30/2024 Status post transcatheter ao rtic valve replacement [...] Encounters Date Type Department Care Team Description 12/01/2024 3:00 PM CDT Orders Only [facility] [address] [place] [address] [place], [place] Lab 12/01/2024 Anticoagulation (warfarin) [facility] [address] [place], [place] [phone] [facility] Anticoag Anticoagulation 12/01/2024 Travel 11/19/2024 Telephone [facility] [address] [facility] [place] [id number] Jacki Underwood, DO Anticoagulation (Annual re-enrollment /) 11/10/2024 10:30 AM CDT Orders Only [facility] [address] [facility] [place] [address] Lab, [place] [facility] 11/10/2024 Anticoagulation (warfarin) [facility] [address] [facility] [place] [address] Nurse, g Anticoag Anticoagulation (lab) 11/10/2024 Travel 10/27/2024 2:00 PM CDT Orders Only [facility] [address] [place] [address] Lab 10/27/2024 Travel 10/27/2024 Anticoagulation (warfarin) [facility] [address] [facility] [place] [address] Nurse, g Anticoag Anticoagulation 10/10/2024 Anticoagulation (warfarin) [facility] [address] [place] [address] Nurse, g Anticoag Anticoagulation; Refill Request (warfarin) 10/09/2024 10:30 AM CDT Orders Only [facility] [address] [facility] [place] [address] Lab, [place] [facility] 10/09/2024 Travel 09/19/2024 Telephone [facility] [address] [facility] [place] [address] Jacki Underwood, Blood Pressure 09/18/2024 10:30 AM CDT Orders Only [facility] [address] [place] [address] Lab, [place] [facility] 09/18/2024 Anticoagulation (warfarin) [facility] [address] [place] [address] 1, [place] [facility] Anticoagulation 09/18/2024 Travel from Last 3 Months Immunizations Immunization Administration Dates Next Due COVID-19 vaccine (Moderna [...] Disease Paternal Uncle two uncles h ad [place] at ages33, 40 Alcohol/Drug Sister Annabelle alcohol Cancer-breast Sister Annabelle Polycythemia Sister Annabelle Cancer-ovarian No Family History Relation Name Status Comments Brother 1 Javed Brother 2 Brother 3 Brother 4 Brother 5 German Father Maternal Aunt Mother May, Other spouse, 1995, p ancreatic cancer Paternal Uncle Sister Annabelle Social History Tobacco Use Types Packs/Day Years Used Date Smoking Tobacco: Every Day Cigarettes 0.3 52.6 Started: 1972 Smokeless Tobacco: Never Tobacco Cessation:Ready to Q uit: Not Asked; Counseling Given: Not Answered Comments:Couple CIGARETTES PER DAY Alcohol Use Standard Drinks/Week Comments Yes 0 (1 standard drink = 0.6 oz pur e alcohol) ocassionally PHQ-2 Answer Date Recorded PHQ-2 TOTAL SCORE 0 07/11/2024 Social Connections Answer Date Recorded Do you often feel lonely or isolated from those around you? 0 01/19/2024 Financial Resource Strain Answer Date R ecorded Difficulty of Paying Living Expenses 3 12/28/2023 Difficulty of Paying Living Expenses Not on file 12/28/2023 Food Insecurity Answer Date Recorded Do you worry your food will run out before you are able to buy more? 1 01/19/2024 Transportation Needs Answer Date Record ed Does lack of transportation keep you from medica l appointments? 1 01/19/2024 Does lack of transportation keep you from work, meetings or getting things that you need? 1 01/19/2024 Housing Stability Answer Date Recorded What is your housing situation today? 1 01/19/2024 Interpersonal Safety Answer Date Record ed Are you being hit, kicked, p ushed or yelled at (see row info)? No 01/18/2024 Interpersonal Safety Abuse 12 - 18 Not on file 01/18/2024 Interpersonal Safety Ambulatory Vulnerability No t on file 01/18/2024 Utilities Answer Date Recorded Do you have trouble paying f or utilities (for example, heat, electricity, water, phone)? 1 01/19/2024 Comments No Sex and Gender Information Value Date Recorded Sex Assigned at Not on file Legal Sex Female 5:24 AM PLATE STACKER Gender Identity Not on file Sexual Orientation Not on file Occupation Industry Job Start Date Job End Date Not on file Not on file Not on file Not on file Obstetrics History Para Term AB IAB SAB Ectopic Multiple Livin g Live Births 2 2 Date Outcome GA Total Labor Labor/2nd/3rd Weight Sex Type Anes PTL She A1 A5 Name Clin Last Filed Vital Signs Vital Sign Reading Time Taken Comments Blood Pressure 166/94 06/03/2024 10:58 AM PLATE STACKER Pulse 103 06/03/2024 10:58 AM PLATE STACKER Temperature 37 C (98.6 F) 01/20/2024 7:19 AM CDT Respiratory Rate 20 02/19/2024 2:00 PM PLATE STACKER Oxygen Saturation 97% 06/03/2024 10:58 AM PLATE STACKER Inhaled Oxygen Concentration - - Weight 51.3 kg (113 lb 3.2 oz) 06/03/2024 10:58 AM PLATE STACKER Height 154.9 cm (5' 1) 06/03/2024 10:58 AM PLATE STACKER Body Mass Index 21.39 06/03/2024 10:58 AM PLATE STACKER Plan of Treatment Upcoming Encounters Date Type Department Care Team (Late st Contact Info) Description 12/19/2024 10:00 AM CDT Orders Only [facility] [address] [place] [address] [place] 12/19/2024 10:30 AM CDT Ancillary Procedure [facility] [address] [place] [address] 12/29/2024 11:05 AM CDT Office Visit [facility] [address] [place] [address] Jakci Underwood DO [address] [place] [address] Health Maintenance Due Date Last Done Comments COVID-19 vaccine series ( season) 2024 12/22/2023, 04/18/2023, 10/27/2022, Additional history exists Influenza Vaccine (#1) 2024 , 02/18/2019, 01/23/2017, Additional history exists Medicare Wellness for age 65+ 12/28/2024, 10/27/2022, 10/26/2021, Additional history exists Mammogram for age 45-75 02/17/2025 02/18/20 24, 01/30/2023, 01/25/2022, Additional history exists BMI (ht and wt on same day) for age 18+ 06/03/2025 06/03/2024, 02/22/2024, 01/09/2024, Additional history exists Depression screening for age 12+ 07/11/2025 07/11/2024, 06/09/2024, 02/22/2024, Additional history exists Colonoscopy through age 75 05/09/202805/09, 05/09/2021, 01/18/2016, Additional history exists Lipids for age 45-75 01/08/2029 01/09/2024, 12/28/2023, 10/27/2022, Additional history exists Tetanus booster 03/05/2030 03/05/2020, 04/0 08/2009, 08/29/2002 Hepatitis B series for 19+ Completed 08/03, 02/28/2002, 01/25/2002 Hepatitis C screening for ag e 18-79 Completed 04/16/2013 (Completed outsid e of Erika) Zoster (shingles) series for age 50+ Completed 03/30/2020, 01/16/2020, 03/07/2011 DEXA/DXA scan for age 65+ Completed 2021, 03/10/2019, 04/30/2012 Pneumococcal series for age 50+ Completed 09/03/2021, 01/25/2018, 06/07/2015, Additional history exists RSV vaccine for adults or Completed 03/05/2023 Procedures Procedure Name Priority Date/Time Associated Diagnosis Comments INR,POCT Routine 12/01/2024 2:57 PM CDT S/P TAVR (transcatheter aortic valve replacement) Hypoattentuated leaflet thickening (HALT) Anticoagulation monitoring, INR range 2-3 INR,POCT Routine 11/10/2024 10:27 AM CDT S/P TAVR (transcatheter aortic valve replacement) Hypoattentuated leaflet thickening (HALT) INR,POCT Routine 10/27/2024 1:37 PM CDT S/P TAVR (transcatheter aortic valve replacement) Hypoattentuated leaflet thickening (HALT) INR,POCT Routine 10/09/2024 10:26 AM CDT S/P TAVR (transcatheter aortic valve replacement) Hypoattentuated leaflet thickening (HALT) INR,POCT Routine 09/18/2024 10:42 AM CDT S/P TAVR (transcatheter aortic valve replacement) Hypoattentuated leaflet thickening (HALT) XR MAMMO KAIA BILAT SCREEN Routine 02/18/2024 11:30 AM PLATE STACKER Visit for screening mammogram LIPID PANEL W REFLEX MEASURED LDL Routine 01/09/2024 9:57 AM CDT Lipid screening XR DXA BONE DENSITY 2 SITES AXIAL Routine 05/23/2021 11:09 AM PLATE STACKER Osteopenia with high risk of fracture Post-menopausal COLONOSCOPY SCREENING Routine 05/09/2021 12:00 AM PLATE STACKER Personal history of colonic polyps from Last 3 Months or Most Recently Relevant to Health Maintenance Results * (ABNORMAL) INR - POCT [22450.2] - Standing Order (12/01/2024 2:57 PM CDT) Only the most recent of5 resultswithin the time period is included. INR 3.2(H) ratio [facility] Comment: INRs >2.9 may be falsely elevated in patients receiving either unfractionated Heparin or Low Molecular Weight Heparin. Follow up testing in a hospital laboratory may be helpful if clinically indicated. INR results of > or = 5.0 should be verified using the standard venipuncture procedure. Reference Range 0.9-1.1 Moderate-intensity Warfarin Therapy 2.0-3.0 Higher-intensity Warfarin Therapy 3.0-4.0 PROTHROMBIN TIMEP 37.8(H) 10.5 - 13.[address] [facility] Comment: Point of care fingerstick Prothrombin Time/INR results may vary from venous Prothrombin Time/INR methodologies. Any results exhibiting inconsistency with the patient's clinical status should be repeated using a venous Prothrombin Time/INR method. Blood BLOOD SPECIMEN / Unknown 12/01/2024 2:57 PM CDT 12/01/2024 2:58 PM CDT Jacki Diazt DO LABORATORY Final Resul t [facility] [place] [address], [place] [phone] [facility] [address] [place] [address] * XR MAMMO KAIA BILAT SCREEN (02/18/2024 11:30 AM PLATE STACKER) Anatomical Region Laterality Modality BREASTS, Breast Left, Breast Right Bilateral Mammography Impressions 02/20/2024 12:33 PM PLATE STACKER There is no radiographic evidence for malignancy. Recommend annual mammograms. MAMMOGRAM ASSESSMENT: ACR 1 Negative PATIENTS: You will also receive a letter with your examination results in an easy to read format. If you have questions about your results, please contact your referring provider. Narrative 02/20/2024 12:33 PM PLATE STACKER For Patients: As a result of the Century Cures Act, medical imaging exams and procedure reports are released immediately into your electronic medical record. You may view this report before your referring provider. If you have questions, please contact your health care provider. XR MAMMO KAIA BILAT SCREEN [[id number]] CLINICAL HISTORY: This is an asymptomatic 74 y.o. patient. INDICATION FOR EXAM: Mammogram Screening. TECHNIQUE: CC & MLO views were obtained. This study was evaluated with the assistance of Computer-Aided Detection. Breast Tomosynthesis was used in interpretation. COMPARISON FILM: Yes 01/30/23 [facility] 01/25/22 [facility] FINDINGS: There are scattered areas of fibroglandular density. There are no dominant masses, suspicious micro calcifications or areas of architectural distortion. Jacki Diazt DO MAMMO Final Resul t * (ABNORMAL) LIPID PANEL W REFLEX MEASURED LDL (01/09/2024 9:57 AM CDT) CHOLESTEROL,TOTAL 239(H) 100 - 199 mg/dL 01/09/2024 10:36 AM CDT [facility] Comment: Cholesterol, Total Reference Ranges Desirable <200 mg/dL Borderline 200-239 mg/dL High >=240 mg/dL TRIGLYCERIDES 211(H) <150 mg/dL 01/09/2024 10:36 AM CDT [facility] HDL CHOLESTEROL 85 >40 mg/dL 10:36 AM CDT [facility] NON-HDL CHOLESTEROL 154(H) <145 mg/dl 01/09/2024 10:36 AM CDT [facility] CHOL/HDL RATIO 2.81 <4.50 01/09/2024 10:36 AM CDT [facility] LDL CHOLESTEROL 112 <=130 mg/dL 01/09/2024 10:36 AM CDT [facility] VLDL CHOLESTEROL 42(H) <=30 mg/dL 01/09/2024 10:36 AM T [facility] PROVIDER ORDERED STATUS RANDOM 01/09/2024 10:36 AM T [facility] Blood BLOOD SPECIMEN / Unknown Venipuncture / Unknown 01/09/2024 9:57 AM CDT 01/09/2024 10:06 AM CDT us Jacki Diazt DO CHEMISTRY Final Resul t [facility] [address] [place] [address], [place] * (ABNORMAL) XR DXA BONE DENSITY 2 SITES AXIAL (05/23/2021 11:09 AM PLATE STACKER) Anatomical Region Laterality Modality Spine, HIPS, HIPL, HIPR Other Impressions 05/30/2021 8:21 AM PLATE STACKER Osteopenia with elevated hip fracture risk. Given [...] Roz Suarez PA-C Narrative 05/30/2021 8:21 AM PLATE STACKER For Patients: Results are automatically released to your [facility] account once available, in compliance with federal regulations. This means that you may see your results before your provider has had a chance to review them. Please allow 2-3 business days for your provider to comment on the results. XR DXA Bone Mineral Density (BMD) EXAM LOCATION: [facility] [address] [facility] [address] PATIENT NAME: Sylwia Magana DATE OF : 1950 EXAM DATE: 05/23/2021 REQUESTING PROVIDER: Jacki Underwood DO GENDER AT : female HEIGHT: 5' 0.63 (06/21/2020) WEIGHT: 131 lb (04/29/2021) MENOPAUSAL STATUS: Postmenopausal RACE/ETHNICITY: White RISK FACTORS: Smoking (current) and Steroid Medication (non-topical) CURRENT MEDICATION FOR BONE LOSS: Alendronate (Fosamax) INDICATION: Post-Menopause COMPARISON DATE(S): 2019 DXA scans are compared to prior studies for a patient only when the two (or more) studies were performed on the same scanner. It is not possible to compare data generated on one scanner to data from another because there are not standards in DXA equipment. This applies even if the two scanners are made by the same softball player. PROCEDURE: Dual-energy x-ray absorptiometry performed with routine [...] - 0.3 Change from prior in 2019: Increase 2.8%. RESULTS FEMUR Left femoral neck BMD: 0.733 g/cm2 T-Score: - 2.2 Z-Score: - 0.3 Change from prior in 2019: Decrease 0.3%. Left hip BMD: 0.828 g/cm2 T-Score: - 1.4 Z-Score: + 0.2 Change from prior in 2019: Increase 3.9%. WHO criteria: Normal: T-score at or above -1 SD Osteopenia: T-score between -1.1 and -2.4 SD Osteoporosis: T-score at or below -2.5 SD FRAX RISK CALCULATION (USED FOR OSTEOPENIA ONLY): 10-year probability of major osteoporotic fracture: 14.7%. 10-year probability of hip fracture: 5.2%. us Jacki Underwood DO DEXA Final Resul t * COLONOSCOPY SCREENING (05/09/2021 12:00 AM PLATE STACKER) David Prince MD GI PROCEDURE ORD Edited R esult - Final from Last 3 Months or Most Recently Relevant to Health Maintenance [place] [address] MEDICARE PART B HB ONLY [employer] [place] BL[employer] MR PB ONLY [employer] [place] [place] BLUE HB ONLY MEDICARE PART A HB ONLY Advance Directives * DNR (Latest Code Status [...] 2:20 PM 09/29/2010 12:14 AM Care Teams Wash House Supervisor Relationship Specialty Start Date End Date Jacki Underwood DO [address] [place] [address] PCP - General Family Practice 04/18/19 Jun Ramachandran MD [address] [place] [id number] Family Practice 01/03/17 Mohan Chaves MD [address] [place] [id number] Surgery - Orthopedics 01/03/17
--- NOTE | 2024-12-09 09:25 | ED.GENADULT ---
HPI - General Adult General Chief complaint: Weakness Stated complaint: poss stroke, fall Time Seen by Provider: 12/09/24 09:24 History of Present Illness HPI narrative: Pt brought by [facility]. LKW was yesterday evening when son saw her at baseline. Son went to visit this AM and stated pt seemed weaker than normal, some slurring of speech and word finding issues. Pt appears quite drowsy and weak on arrival to ER. Pt does take Oxycodone, unsure of last dose timing. BG 163 per EMS. 74-year-old woman presenting to the emergency department via EMS with concern of potential CVA. Concern of some difficulty finding words or slurring of speech. Does have a history of chronic low back pain for which apparently is prescribed oxycodone which she does not usually take. She is able to tell me this morning that a least going back over a number of days she would not be taking it. She does not like to take it because it tends to make her constipated. She is not having any abdominal pain. Spoke to her son yesterday evening and apparently was in normal state of health other than what sounds like some increased back pain. He suspect she has not slept very well. Jacob is able to tell me that this morning she did take oxycodone. No fever. Seems to be telling me that she is having some degree of headache putting her hands to her left head. Lives independently in intermediate. Related Data Home Medications ?Medication ?Instructions ?Recorded ?Confirmed atenolol 50 mg tablet 50 mg PO DAILY 06/27/22 06/27/22 Allergies Allergy/AdvReac Type Severity Reaction Status Date / Time adhesive Allergy Verified 06/27/22 13:04 aspirin Allergy Verified 06/27/22 13:04 ketorolac (From Toradol) Allergy Verified 06/27/22 13:04 psyllium Allergy Verified 06/27/22 13:05 Review of Systems Status of ROS: Reports: 6 or more systems reviewed and unremarkable except as noted in History and below [facility] Social History Smoking Status: Current every day smoker How often do you have a drink containing alcohol: 4 or more times a week AUDIT-C Alcohol total score: 4 Exam Narrative: Exam Narrative: Does appear quite fatigued. Skin is warm and dry. Neck is supple. Nontender. Head looks atraumatic (upon later palpation she clearly has a broad hematoma at the upper occipital parietal scalp). Cranial nerves 2-12 intact. Extraocular movements are full. Pupils are 2 mm and appropriately reactive. Heart in regular rate and rhythm. She does look to take a beta-andres. Lungs appear clear. Abdomen is soft nontender. Other than just generally fatigued she appears to be moving all extremities without difficulty. Weak but intact heel to mccoy. No extremity drift. Some words articulated clearly and then otherwise seems to struggle either with pronunciation or with some word-finding; little difficult to tell. Is sore to palpation over the left low back. Grimaces to sitting. Const: Vital Signs, click to edit/add: Vital Signs - 24 hr 12/09/24 09:33 12/09/24 09:34 12/09/24 09:34 Temperature 97.8 F Pulse Rate 107 H 100 Pulse Rate [Pulse Oximeter] 105 H Respiratory Rate 15 16 23 Blood Pressure 147/84 H Blood Pressure [Le ft Upper Arm] 147/84 H Pulse Oximetry 96 96 94 Oxygen Delivery Me thod Room Air 12/09/24 09:44 12/09/24 09:45 12/09/24 09:46 Temperature Pulse Rate 101 H 100 Pulse Rate [Pulse Oximeter] Respiratory Rate 21 Blood Pressure 144/86 H Blood Pressure [Le ft Upper Arm] Pulse Oximetry 92 92 92 Oxygen Delivery Me thod 12/09/24 10:00 12/09/24 10:11 12/09/24 10:15 Temperature Pulse Rate 100 100 Pulse Rate [Pulse Oximeter] Respiratory Rate 23 23 20 Blood Pressure 142/81 H Blood Pressure [Le ft Upper Arm] Pulse Oximetry 92 93 Oxygen Delivery Me thod Documenting provider has reviewed patient's vital signs: yes Course Vital Signs Vital signs: Initial Vital Signs Pulse Rate 107 H 12/09/24 09:33 Respiratory Rate 15 12/09/24 09:33 Blood Pressure 147/84 H 12/09/24 09:33 Blood Pressure Mean 105 12/09/24 09:33 Pulse Oximetry 96 12/09/24 09:33 Vital Signs Pulse Rate 107 H 12/09/24 09:33 Respiratory Rate 15 12/09/24 09:33 Blood Pressure 147/84 H 12/09/24 09:33 Pulse Oximetry 96 12/09/24 09:33 Temperature 97.8 F 12/09/24 09:34 Pulse Rate 100 12/09/24 10:15 Respiratory Rate 20 12/09/24 10:15 Blood Pressure 142/81 H 12/09/24 10:11 Pulse Oximetry 93 12/09/24 10:15 Oxygen Delivery Method Room Air 12/09/24 09:34 Medications Administered Medications: Generic Name Dose Route Start Last Admin Trade Name Liza PRN Reason Stop Dose Admin Sodium Chloride 500 mls @ 500 mls/hr 12/09/24 09:44 12/09/24 10:04 0.9 % Sodium Chloride 500 Ml IV 12/09/24 10:43 500 mls/hr .Q1H ONE Administration Medical Decision Making MDM Narrative Medical decision making narrative: Concern is might be a cerebrovascular event but really appears more sedated than anything else. Last well is yesterday evening. Think would start with head CT and check labs for other indication of infection. Does not have vitals to suggest sepsis nor does she appear to be with meningitis. I suppose this could be encephalopathy. CT of her head independently reviewed by me shows large left-sided intraparenchymal bleed with some surrounding edema. I discover later from conversation with son that she does indeed take Coumadin for aortic valve replacement that I believe was done last year. Able to clarify with son later that he had gone to his mother's senior apartment yesterday evening around 6:00 p.m. after she had fallen. Seemed well when he checked in on her around 8 or 9:00 p.m. yesterday evening as well. And other than some complaints of low back pain at the time which she has been experiencing from some other recent falls and sounds like possible compression fractures, she was well. INDICATION: Altered mental status TECHNIQUE: CT head without contrast. COMPARISON: None. FINDINGS: MASS EFFECT AND VENTRICLES: No significant midline shift. Mild effacement of the left lateral ventricle. Minimal effacement of the suprasellar cistern on the left. Basal cisterns are patent. BRAIN: Diffuse cerebral volume loss. Periventricular and subcortical hypodensities likely secondary to age-related microvascular ischemic changes. There is a large intraparenchymal hemorrhage centered in the region of the left insula extending into the left anterior temporal lobe measuring 5.1 x 3.7 x 4.7 centimeters (06/07, ) with surrounding vasogenic edema. VASCULAR: No acute abnormalities of the cavernous carotids and vertebral vessels on noncontrast exam. EXTRA-AXIAL: Trace subarachnoid hemorrhage along the left temporal lobe. Mixed density left frontotemporal subdural hemorrhage measuring 0.6 centimeters in thickness. EXTRA-CRANIAL: Large scalp hematoma at the vertex measuring 0.6 centimeters in thickness. No acute calvarial fractures. Sinuses and mastoids are clear. Bilateral lens replacements. IMPRESSION: Large intraparenchymal hemorrhage centered in the region of the left insula with surrounding mass effect. No evidence of midline shift. Mixed density left frontotemporal subdural hemorrhage and trace frontotemporal subarachnoid hemorrhage. Large scalp hematoma at the vertex. Please note that all CT scans at this facility use dose modulation, iterative reconstruction, and/or weight-based dosing when appropriate to reduce radiation dose to as low as reasonably achievable. Dictated by Ines Iqbal MD @ 12/09/2024 10:06:43 AM ----- ADDENDUM ----- Results communicated to [facility] by Farida on 12/09/2024 at 10:07 a.m.. Dictated by Ines Iqbal MD @ Dec 09 2024 10:07AM (Electronically Signed) For Patients: As a result of the Century Cures Act, medical imaging exams and procedure reports are released immediately into your electronic medical record. You may view this report before your referring provider. If you have questions, please contact your health care provider. INDICATION: Altered mental status TECHNIQUE: CT head without contrast. COMPARISON: None. FINDINGS: MASS EFFECT AND VENTRICLES: No significant midline shift. Mild effacement of the left lateral ventricle. Minimal effacement of the suprasellar cistern on the left. Basal cisterns are patent. BRAIN: Diffuse cerebral volume loss. Periventricular and subcortical hypodensities likely secondary to age-related microvascular ischemic changes. There is a large intraparenchymal hemorrhage centered in the region of the left insula extending into the left anterior temporal lobe measuring 5.1 x 3.7 x 4.7 centimeters (06/07, ) with surrounding vasogenic edema. VASCULAR: No acute abnormalities of the cavernous carotids and vertebral vessels on noncontrast exam. EXTRA-AXIAL: Trace subarachnoid hemorrhage along the left temporal lobe. Mixed density left frontotemporal subdural hemorrhage measuring 0.6 centimeters in thickness. EXTRA-CRANIAL: Large scalp hematoma at the vertex measuring 0.6 centimeters in thickness. No acute calvarial fractures. Sinuses and mastoids are clear. Bilateral lens replacements. IMPRESSION: Large intraparenchymal hemorrhage centered in the region of the left insula with surrounding mass effect. No evidence of midline shift. Mixed density left frontotemporal subdural hemorrhage and trace frontotemporal subarachnoid hemorrhage. Large scalp hematoma at the vertex. Please note that all CT scans at this facility use dose modulation, iterative reconstruction, and/or weight-based dosing when appropriate to reduce radiation dose to as low as reasonably achievable. Dictated by Ines Iqbal MD @ 12/09/2024 10:06:43 AM Did discuss findings on head CT with radiologist. Paged Stroke Neuro. Goal systolic of 140 or less. Pending INR did speak with senior technical support analyst at [facility] who has accepted for admission. Do not have INR back yet but will be initiating Kcentra and vitamin K. Medical Records Medical records reviewed: Yes I reviewed the patient's medical records Lab Data Labs: Lab Results 12/09/24 Range/Units 10:10 WBC 9.09 (4.50-11.00) K/uL RBC 4.49 (4.00-5.20) m/uL Hgb 15.7 (12.0-16.0) gm/dL Hct 44.7 (33.0-51.0) % MCV 100 (80-100) fL MCH 35 H (26-34) pg MCHC 35 (32-36) gm/dL RDW Coeff of [place] 12.3 (11.5-15.5) % Plt Count 181 (140-440) K/uL Neut % (Auto) 86.2 H (42.0-72.0) % Lymph % (Auto) 4.6 L (20-44) % Gilliam % (Auto) 8.9 (0.0-11.0) % Eos % (Auto) 0.0 (0.0-7.0) % Baso % (Auto) 0.1 (0.0-3.0) % Neut # (Auto) 7.80 H (1.7-7.0) K/uL Lymph # (Auto) 0.40 L (0.90-2.90) K/uL Gilliam # (Auto) 0.80 (0.00-0.90) K/UL Eos # (Auto) 0.00 (0.00-0.50) K/uL Baso # (Auto) 0.01 (0.00-0.30) K/uL Abs Immat Gran (auto) 0.02 (0.00-0.30) K/uL Imm/Tot Granulo (auto) 0.2 % Critical Care Time Critical Care Time Total Critical Care Time in Minutes: 45 Discharge Plan Discharge Clinical Impression: Hemorrhage, intracerebral, Subarachnoid bleed, Fall Patient Disposition: [facility] Condition: Stable Prescriptions: No Action atenolol 50 mg tablet 50 mg PO DAILY Stand Alone Forms: MyHealth Info Instructions
--- NOTE | 2024-12-09 09:44 | CRLHL7_ITS ---
For Patients: As a result of the Century Cures Act, medical imaging exams and procedure reports are released immediately into your electronic medical record. You may view this report before your referring provider. If you have questions, please contact your health care provider. INDICATION: Altered mental status TECHNIQUE: CT head without contrast. COMPARISON: None. FINDINGS: MASS EFFECT AND VENTRICLES: No significant midline shift. Mild effacement of the left lateral ventricle. Minimal effacement of the suprasellar cistern on the left. Basal cisterns are patent. BRAIN: Diffuse cerebral volume loss. Periventricular and subcortical hypodensities likely secondary to age-related microvascular ischemic changes. There is a large intraparenchymal hemorrhage centered in the region of the left insula extending into the left anterior temporal lobe measuring 5.1 x 3.7 x 4.7 centimeters (06/07, ) with surrounding vasogenic edema. VASCULAR: No acute abnormalities of the cavernous carotids and vertebral vessels on noncontrast exam. EXTRA-AXIAL: Trace subarachnoid hemorrhage along the left temporal lobe. Mixed density left frontotemporal subdural hemorrhage measuring 0.6 centimeters in thickness. EXTRA-CRANIAL: Large scalp hematoma at the vertex measuring 0.6 centimeters in thickness. No acute calvarial fractures. Sinuses and mastoids are clear. Bilateral lens replacements. IMPRESSION: Large intraparenchymal hemorrhage centered in the region of the left insula with surrounding mass effect. No evidence of midline shift. Mixed density left frontotemporal subdural hemorrhage and trace frontotemporal subarachnoid hemorrhage. Large scalp hematoma at the vertex. Please note that all CT scans at this facility use dose modulation, iterative reconstruction, and/or weight-based dosing when appropriate to reduce radiation dose to as low as reasonably achievable. Dictated by Ines Iqbal MD @ 12/09/2024 10:06:43 AM (Electronically Signed)
[2024-12-09] MEDS: 0.9 % SODIUM CHLORIDE 500 ML 500 ML IV (10:04)
[2024-12-09 10:16] LABS: Hematocrit 44.7 % (33.0-51.0); Hemoglobin* 15.7 gm/dL (12.0-16.0); Immature Granulocytes Abs Auto 0.02 K/uL (0.00-0.30); Immature Granulocytes Pct Auto 0.2 %; Mean Corpuscular HGB Conc 35 gm/dL (32-36); Mean Corpuscular Hemoglobin 35 pg (26-34); Mean Corpuscular Volume 100 fL (80-100); RDW Coefficient of Variation % 12.3 % (11.5-15.5); Red Blood Count 4.49 m/uL (4.00-5.20); White Blood Count* 9.09 K/uL (4.50-11.00)
[2024-12-09 10:20] LABS: Lymphocytes Absolute Auto 0.40 K/uL (0.90-2.90); Slide Review Reflex No
[2024-12-09 10:34] LABS: Chloride* 91 mmol/L (96-114); Potassium* 3.5 mmol/L (3.6-5.1); Sodium* 129 mmol/L (135-149)
[2024-12-09 10:36] LABS: Blood Urea Nitrogen* 8 mg/dL (7-30); Creatinine* 0.5 mg/dL (0.5-1.5); Est. Creatinine Clearance* 37.24; Estimated Glomerular Filt Rate 98 ml/min
[2024-12-09 10:37] LABS: Anion Gap 7 mEq/L (7-15); Calcium* 9.5 mg/dL (8.4-10.6); Carbon Dioxide* 31 mmol/L (20-32); Glucose* 155 mg/dL (60-115); INR 2.83 (0.91-1.10); Prothrombin Time 31.0 Seconds
[2024-12-09] MEDS: PHYTONADIONE (VIT K1) 10 MG in 0.9 % SODIUM CHLORIDE 50 ml 50 ML 100 MG IVPB (10:37)
[2024-12-09 10:40] LABS: Ethanol* < 0.01 % (0.01-0.03)
[2024-12-09] MEDS: INTRAVIA CONTAINER IV (10:47)
[2024-12-09] MEDS: PROTHROMBIN COMPLEX IV (10:47)
== END 2024-12-09 12:48 | disposition short-term general hospital (02) ==
PROVIDERS: Emergency Provider Family Medicine; PCP Family Medicine
DX: S06.360A Traumatic hemorrhage of cerebrum, unspecified, without loss of consciousness, initial encounter (principal); S06.6X0A Traumatic subarachnoid hemorrhage without loss of consciousness, initial encounter; W19.XXXA Unspecified fall, initial encounter
CPT/HCPCS: 36415; 70450; 80048; 81001; 82077; 84484; 85025; 85610; 85730; 86140; 87040; 93005; 94761; 96365; 99284; 99291; J3430; J7030; J7168

== ENCOUNTER 2024-12-09 12:36 | Outpatient (CLI) | payer MEDICARE, BC, SELFPAY | END 2024-12-09 12:37 | disposition home or self-care (01) | LOC: AMB 12-11 10:48 | PROVIDERS: PCP Family Medicine; Visit Provider Family Medicine | DX: I60.9 Nontraumatic subarachnoid hemorrhage, unspecified (principal); I61.9 Nontraumatic intracerebral hemorrhage, unspecified | CPT/HCPCS: A0425; A0433 ==

== ENCOUNTER 2025-01-13 15:34 | Outpatient (CLI) | payer MEDICARE, BC, SELFPAY ==
--- NOTE | 2025-01-13 16:00 | CRLHL7_ITS ---
For Patients: As a result of the Century Cures Act, medical imaging exams and procedure reports are released immediately into your electronic medical record. You may view this report before your referring provider. If you have questions, please contact your health care provider. INDICATION: Traumatic left-sided intracerebral hemorrhage. TECHNIQUE: Head CT was performed without the administration of intravenous contrast. COMPARISON: : Head CT 12/09/2024. FINDINGS: Postsurgical changes related to left temporal craniotomy for presumed hematoma evacuation. Encephalomalacia and gliosis in the left temporal lobe with resolution of previous intraparenchymal and subdural hemorrhages. No evidence of acute infarction or new intracranial hemorrhage. No edema or mass effect. The ventricles are prominent reflecting the degree of brain atrophy and unchanged in size from prior study. No significant paranasal sinus mucosal thickening/secretions. No evidence of acute orbital pathology. Trace mastoid effusions bilaterally. No acute or aggressive osseous lesions. IMPRESSION: Resolution of previous intraparenchymal and subdural hemorrhages. No new intracranial hemorrhage. Please note that all CT scans at this facility use dose modulation, iterative reconstruction, and/or weight-based dosing when appropriate to reduce radiation dose to as low as reasonably achievable. Dictated by Kareem Dangelo MD @ 01/14/2025 3:42:14 PM (Electronically Signed)
--- NOTE | 2025-01-13 16:45 | CRLHL7_ITS ---
For Patients: As a result of the Century Cures Act, medical imaging exams and procedure reports are released immediately into your electronic medical record. You may view this report before your referring provider. If you have questions, please contact your health care provider. INDICATION: Closed wedge fracture of thoracic vertebrae. TECHNIQUE: Thoracic spine CT was performed without the administration of intravenous contrast. COMPARISON: : Chest CTA 06/27/2022, lumbar spine CT 01/18/2024. FINDINGS: There is normal thoracic alignment. Age-indeterminate T12 burst fracture deformity with up to 40 % height loss and 3 mm retropulsion into the spinal canal that is new from 01/18/2024. A chronic L1 burst fracture deformity with up to 40 % height loss and 3 mm retropulsion into the spinal canal does not significantly progressed from prior study. Mild multilevel degenerative disc changes. No significant spinal canal or neural foraminal narrowing. The visualized soft tissues are within normal limits. IMPRESSION: 1. Age-indeterminate T12 burst fracture deformity with up to 40% height loss and 3 mm retropulsion into the spinal canal that is new from 01/18/2024. 2. Chronic L1 burst fracture deformity with up to 40% height loss and 3 mm retropulsion into the spinal canal, not significantly progressed. 3. No significant spinal canal or neural foraminal narrowing. Please note that all CT scans at this facility use dose modulation, iterative reconstruction, and/or weight-based dosing when appropriate to reduce radiation dose to as low as reasonably achievable. Dictated by Kareem Dangelo MD @ 01/14/2025 4:00:46 PM (Electronically Signed)
== END 2025-01-13 15:35 | disposition home or self-care (01) ==
LOC: CT 15:35
PROVIDERS: PCP Family Medicine; Visit Provider Nurse Practitioner
DX: S06.35A Traumatic hemorrhage of left cerebrum with loss of consciousness status unknown (principal); S22.000S Wedge compression fracture of unspecified thoracic vertebra, sequela
CPT/HCPCS: 70450; 72128

== ENCOUNTER 2025-03-02 10:06 | Outpatient (CLI) | payer MEDICARE, BC, SELFPAY ==
--- NOTE | 2025-03-02 10:15 | CRLHL7_ITS ---
For Patients: As a result of the Cures Act, medical imaging exams and procedure reports are released immediately into your electronic medical record. You may view this report before your referring provider. If you have questions, please contact your health care provider. Indication: Follow-up fractures Technique: Thoracolumbar view two-view Comparison: CT 01/13/2025 IMPRESSION: Compression fracture deformities at the thoracolumbar junction unchanged involving 2 of the vertebral bodies which appear to be L1 and L2 on the current study. Dictated by Ramsey Bravo MD @ 03/02/2025 11:25:43 AM (Electronically Signed)
== END 2025-03-02 10:07 | disposition home or self-care (01) ==
PROVIDERS: PCP Family Medicine
DX: S32.010D Wedge compression fracture of first lumbar vertebra, subsequent encounter for fracture with routine healing (principal); S32.020D Wedge compression fracture of second lumbar vertebra, subsequent encounter for fracture with routine healing
CPT/HCPCS: 72080

== ENCOUNTER 2025-04-13 09:26 | Outpatient (CLI) | payer MEDICARE, BC, SELFPAY ==
--- NOTE | 2025-04-13 10:00 | CRLHL7_ITS ---
For Patients: As a result of the Cures Act, medical imaging exams and procedure reports are released immediately into your electronic medical record. You may view this report before your referring provider. If you have questions, please contact your health care provider. Indication: Compression fracture of thoracic vertebra with routine healing Technique: Lumbar spine 2 view Comparison: 03/02/2025 IMPRESSION: Compression deformities of L1 and L2 are unchanged without further loss of height compared to the prior exam. Dictated by Ramsey Bravo MD @ 04/13/2025 12:29:47 PM (Electronically Signed)
== END 2025-04-13 09:27 | disposition home or self-care (01) ==
LOC: RAD 09:28
PROVIDERS: PCP Family Medicine; Visit Provider Physician Assistant Surgical
DX: S22.000D Wedge compression fracture of unspecified thoracic vertebra, subsequent encounter for fracture with routine healing (principal)
CPT/HCPCS: 72080